=== PATIENT | female | born 1960 | race Caucasian/White ===

== ENCOUNTER 2016-12-02 12:41 | Inpatient (IN) ==
[2016-12-02] MEDS ORDERED: SOLU-MEDROL IV ONE (13:03)
[2016-12-02] MEDS ORDERED: DUONEB (A & A) INH ONE (13:03)
[2016-12-02] MEDS ORDERED: NS 3,000 ML ONE (13:09)
[2016-12-02] MEDS ORDERED: LEVOPHED 8 MG in D5 1/2 NS 250 ML IV SCH ×2 (13:30→14:00)
[2016-12-02 13:31] LABS: BE 2.3 mmoll (-3.0-3.0); BLOOD TYPE ARTERIAL; DRAW SITE R RADIAL; O2(CT) 15.2 mL/dL (15.0-23.0); PO2(98.6) 102 mmHg (60-100); SAMPLE BLOOD; SAO2 98.4 % (95.0-100.0); THB 11.2 g/dL (11.5-17.4); pH(98.6) 7.31 (7.35-7.45)
[2016-12-02 13:32] LABS: ALLEN TEST YES; MODALITY CANNULA
[2016-12-02 13:33] LABS: PCO2(98.6) 59 mmHg (35-45)
--- NOTE | 2016-12-02 13:36 | EKG Report ---
Test Performed on : 12/02/2016 1:12:42 PM Test Reason : CHEST PAIN Blood Pressure : / mmHG Vent. Rate : 125 BPM Atrial Rate : 125 BPM P-R Int : 152 ms QRS Dur : 076 ms QT Int : 294 ms P-R-T Axes : 076 079 077 degrees QTc Int : 424 ms Sinus tachycardia. with occasional premature ventricular complexes. Biatrial enlargement Abnormal ECG When compared with ECG of 13-OCT-2016 11:47, premature ventricular complexes. are now present premature atrial complexes. are no longer present ST no longer depressed in Anterolateral leads Unconfirmed Result
[2016-12-02 13:39] LABS: BASO% 0.2 % (0.0-0.8); EOS# 0.01 X1000 (0.0-0.7); HEMATOCRIT 36.8 % (37.0-47.0); HEMOGLOBIN 11.9 g/dL (12.0-16.0); IMM GRAN# 2.42 X1000 (0.0-0.04); LYMPH# 2.11 X1000 (1.2-3.4); LYMPH% 5.2 % (20.5-51.1); MANUAL DIFF NEEDED? YES; MCH 31.6 PG (27-31); MCHC 32.3 g/dL (33-37); MCV 97.6 FL (81-99); MONO# 2.64 X1000 (0.11-0.59); MONO% 6.5 % (1.7-9.3); NEUT% 82.1 % (42.2-75.2); PLT 311 X1000 (130-400); RBC 3.77 XMIL (4.2-5.4)
[2016-12-02] MEDS ORDERED: VANCOMYCIN 1 GM/NS 1 GM/250 ML IVPB IV ONE (13:54)
[2016-12-02] MEDS ORDERED: ZOSYN 3.375 GM/NS 50 ML IV ONE (13:54)
[2016-12-02 13:55] LABS: INR 1.24 (0.86-1.15); PROTIME 15.9 Seconds (12.1-15.5)
[2016-12-02 13:56] LABS: PTT PL 36.9 Seconds (22.6-43.9)
[2016-12-02] MEDS ORDERED: LEVAQUIN 750 MG/D5W 750 MG/150 ML IVPB IV ONE (13:57)
[2016-12-02 14:01] LABS: ALBUMIN 3.4 g/dL (3.5-5.0); CALCIUM 9.3 mg/dL (8.8-10.2); MAGNESIUM 1.4 mg/dL (1.5-2.7); POTASSIUM 4.8 mmol/L (3.5-5.1); TOTAL BILIRUBIN 0.5 mg/dL (0.20-1.00); TOTAL PROTEIN 7.6 g/dL (6.3-8.3)
[2016-12-02 14:20] LABS: AMYLASE 35 U/L (20-200); LIPASE 15 U/L (13-60)
[2016-12-02 14:22] LABS: BANDS 4 % (0-1); LYMPHS 4 % (21-51); MONO 4 % (1-9)
--- NOTE | 2016-12-02 15:03 | Diag Imaging Result Doc PS360 ---
HEAD W/O CONTRAST - 12/02/2016 INDICATION: AMS TECHNIQUE: A CT dose reduction protocol was used. COMPARISON: None FINDINGS: There is mild to moderate hypodensity of the internal capsules bilaterally right greater than left. No intracranial mass or hemorrhage. The skull is intact. The sinuses, mastoids, and middle ears are clear. IMPRESSION: Chronic microvascular disease of the basilar white matter of the cerebral hemispheres, most notably the internal capsules. No acute appearing abnormality. Electronically signed by Alan Machado 12/02/2016 3:00 PM
--- NOTE | 2016-12-02 15:07 | Diag Imaging Result Doc PS360 ---
ABDOMEN/PELVIS W/O CONTRAST - 12/02/2016 INDICATION: CP/SOB/hypotension TECHNIQUE: A CT dose reduction protocol was used. COMPARISON: Chest CT 06/25/2016 FINDINGS: Stable COPD in the lung bases. No radiodense renal stones. No hydronephrosis or hydroureter. Solid abdominal organs are unremarkable. No bowel obstruction or inflammation. Uterus is absent. Urinary bladder and rectum are normal. There are moderate degenerative changes of the spine. No acute or suspicious bony lesion. IMPRESSION: No acute disease. Electronically signed by Alan Machado 12/02/2016 3:04 PM
--- NOTE | 2016-12-02 15:18 | Diag Imaging Result Doc PS360 ---
EXAM: CHEST-2 VIEWS HISTORY: CP TECHNIQUE: AP and lateral chest COMPARISON: 10/13/2016 FINDINGS: There is a large area of abnormal opacity involving the right hilum, superior right lower lobe, anterior right upper lobe and right middle lobe. Findings are consistent with atelectasis or pneumonia. Endobronchial lesion is not excluded. There is pulmonary emphysema. Left lung is clear. Heart size is normal. No effusions are appreciated. IMPRESSION: New focal airspace disease involving the right hilum, superior right lower lobe and anterior right upper and middle lobes. This may represent atelectasis or consolidation. Endobronchial lesion or mass is not excluded. CT thorax could be considered. Electronically signed by Paulina Max 12/02/2016 3:16 PM
--- NOTE | 2016-12-02 15:58 | PROVIDER DOCUMENTATION ---
This chart was entered by Caity Hall Scribe, acting as scribe for Yossi Liang MD. HPI-Respiratory General - General Chief Complaint: Shortness of Breath Stated Complaint: SOB,WEAKNESS Time Seen by Provider: 12/02/16 13:01 Source: patient Allergies/Adverse Reactions: Patient Allergies Allergy/AdvReac Type Severity Reaction Status Date / Time Penicillins Allergy Severe loss of Verified 06/30/14 10:05 consciousness Home Medications: Home Medication List Medication Instructions Recorded Confirmed Last Taken Type Esomeprazole [Nexium] 40 mg PO DAILY 04/08/13 06/30/14 10/01/13 09:00 History Fenofibrate [Tricor] 145 mg PO DAILY 04/08/13 06/30/14 09/30/13 22:00 History Ferrous Sulfate 500 gm MC DAILY 04/08/13 06/30/14 10/01/13 09:00 History Prednisone 5 mg PO DAILY 04/08/13 06/30/14 10/01/13 09:00 History Primidone [Mysoline] 250 mg PO BID 04/08/13 06/30/14 10/01/13 09:00 History Roflumilast [Daliresp] 500 microgm PO DAILY 04/08/13 06/30/14 10/01/13 09:00 History Sertraline HCl [Zoloft] 100 mg PO DAILY 04/08/13 06/30/14 10/01/13 09:00 History Tizanidine [Zanaflex] 4 mg PO Q8HR 04/08/13 06/30/14 10/01/13 09:00 History Fluticasone/Salmeterol [Advair 1 each IH PRN PRN 10/01/13 06/30/14 10/01/13 09: 00 History 250-50 Diskus] Metoprolol Succinate [Toprol Xl] 50 mg PO DAILY 10/01/13 06/30/14 10/01/13 09: 00 History Tiotropium Mamou Inhaler 1 puff INH RTDAILY 10/01/13 06/30/14 10/01/13 09:00 History [Spiriva] Prednisone 40 mg PO DAILY #0 tablet 10/03/13 06/30/14 Unknown Rx - History of Present Illness-Resp Nature of Presenting Problem: Pt is 56 y/o F presents to the ED with SOB. Pt states the SOB started this am. Pt denies cough and F. Pt states pain on R flank with deep inspiration. Quality of Pain: reports: tightness Severity in ED: reports: mild Onset/Duration: reports: this morning Timing: reports: still present Cough Quality/Degree: reports: mild Episode Frequency: occasional episodes Current Respiratory Medication Therapy: Initiated see nurses note Modifying Factors: improves with: nothing Associated Symptoms: reports: shortness of breath, other (R flank pain). denies : chest pain/soreness, cough, dizziness, earache, facial pain, fever/chills, flu -like symptoms, headache, heart racing, hurts to breathe, hyperventilating, lightheadedness, muscle/bodyaches, nasal congestion, nasal drainage, sinus pain , short of breath, sore throat, sweaty, wheezing Similar Symptoms Previously?: No Recently seen or treated by another doctor?: No Review of Systems - Adult - REVIEW OF SYSTEMS - ADULT Constitutional: reports: no symptoms reported Eyes: reports: no symptoms reported Ears, Nose, Mouth & Throat: reports: no symptoms reported Cardiovascular: reports: irregular heart rate (tachy). denies: chest pain, heart murmur Respiratory: reports: cough, shortness of breath. denies: wheezing Gastrointestinal: reports: no symptoms reported Genitourinary: reports: flank pain (R). denies: dysuria, hematuria Musculoskeletal: reports: back pain. denies: bone pain, joint pain, neck pain Integumentary: reports: no symptoms reported Neurological: reports: no symptoms reported Psychiatric: reports: no symptoms reported Endocrine: reports: no symptoms reported Hematologic/Lymphatic: reports: no symptoms reported Allergic/Immunologic: reports: no symptoms reported All Other Systems: Reviewed and Negative Past History - Adult - PAST MEDICAL HISTORY-ADULT Review of Records: reports: Nursing Assessment Review, Medications Reviewed, Social history reviewed & non-contributory. Major Childhood Illnesses: reports: denies history Cardiovascular: reports: arrhythmia (tachycardia), HTN, hyperlipidemia Respiratory: reports: bronchitis, COPD Gastrointestinal: reports: GERD Obstetrical/Gynecological: reports: denies history Genitourinary: reports: denies history Musculoskeletal: reports: denies history Neurological: reports: denies history Endocrine/Immune: reports: denies history Other Conditions: reports: denies history - PRIOR SURGERIES/PROCEDURES Surgical/Procedure History: reports: hysterectomy - IMMUNIZATION STATUS Childhood Immunizations: See Nurse Assessment Flu Vaccine: See Nurse Assessment - FAMILY HISTORY Family History: reviewed, not pertinent - SOCIAL HISTORY Smoking: quit greater than 1 year, cigarettes Substance Use: denies Living Situation: family Physical Exam-General - PHYSICAL EXAM-ADULT Initial Vital Signs Reviewed: Yes - CONSTITUTIONAL General Appearance: appears well, alert, no apparent distress - EYES Eyes: PERRL/EOMI, pink conjunctivae - HEAD, EARS, NOSE, MOUTH & THROAT HENMT: normocephalic/atraumatic, normal ENT inspection. negative: moist mucous membranes (dry) - NECK Neck: non-tender, full range of motion, supple, normal inspection - RESPIRATORY Respiratory: chest non-tender, lungs clear, decreased breath sounds, pain on inspiration, increased rate - CARDIOVASCULAR Cardiovascular: normal peripheral pulses, tachycardia - GASTROINTESTINAL (ABDOMEN) Abdominal Exam: normal bowel sounds, non tender, soft - LYMPHATIC Lymphatic: no adenopathy - MUSCULOSKELETAL Back Exam: normal inspection, no CVA tenderness, no vertebral tenderness Extremity: normal range of motion, non-tender, normal gait, normal inspection - SKIN Integumentary: normal turgor, warm/dry, pallor - NEUROLOGIC Neurologic: grossly normal - PSYCHIATRIC Psych/Mental Status: normal mood/affect, oriented x 3 Progress - PLAN OF CARE/RESULTS Progress/Plan/Lab Results: Vital Signs - 8 hr 12/02/16 12:49 12/02/16 13:46 Temperature 97 F L Pulse Rate 61 112 H Respiratory Rate 22 24 Blood Pressure 199/75 78/53 O2 Sat by Pulse Oximetry 86 L 91 L Laboratory Results - last 24 hr 12/02/16 12/02/16 12/02/16 13:10 13:15 13:15 WBC RBC Hgb Hct MCV MCH MCHC RDW Std Deviation Plt Count MPV Immature Gran % (Auto) Neut % (Auto) Lymph % (Auto) [place] % (Auto) Eos % (Auto) Baso % (Auto) Immature Gran # (Auto) Neut # (Auto) Lymph # (Auto) [place] # (Auto) Eos # (Auto) Baso # (Auto) Segmented Neutrophils Band Neutrophils Lymphocytes Monocytes Metamyelocytes Pathologist Review PT INR APTT (Factor Assay) D-Dimer Specimen Type ARTERIAL Sample Site R RADIAL pH 7.31 L pCO2 59 H* pO2 102 H HCO3 26.7 H Base Excess 2.3 Oxyhemoglobin 95.6 ABG O2 Sat (Calculated) 15.2 ABG O2 Saturation 98.4 ABG Carboxyhemoglobin 1.90 ABG Methemoglobin 1.0 Yogi Test YES A-a O2 Difference 24.0 Total Hemoglobin 11.2 L Lactate 1.60 Liter Flow 2.0 Blood Gas Modality CANNULA FiO2 % 28.0 Sodium 132 L Potassium 4.8 Chloride 88 L Carbon Dioxide 27 Anion Gap 18 BUN 22 Creatinine 1.7 H Estimated GFR/1.73 m2 31 BUN/Creatinine Ratio 13 Glucose 96 Calculated Osmolality 268 Calcium 9.3 Magnesium 1.4 L Total Bilirubin 0.50 AST 17 ALT 16 Alkaline Phosphatase 103 Creatine Kinase 162 Troponin T < 0.010 Eee-[id number]-Zmldrsqlevz Pept Total Protein 7.6 Albumin 3.4 L Globulin 4.0 Albumin/Globulin Ratio 1.0 Amylase Lipase Acetaminophen Plasma/Serum Ethyl Alc 12/02/16 12/02/16 12/02/16 13:15 13:15 13:15 WBC 40.65 H RBC 3.77 L Hgb 11.9 L Hct 36.8 L MCV 97.6 MCH 31.6 H MCHC 32.3 L RDW Std Deviation 12.9 Plt Count 311 MPV 10.0 Immature Gran % (Auto) 6.0 H Neut % (Auto) 82.1 H Lymph % (Auto) 5.2 L [place] % (Auto) 6.5 Eos % (Auto) 0.0 Baso % (Auto) 0.2 Immature Gran # (Auto) 2.42 H Neut # (Auto) 33.40 H Lymph # (Auto) 2.11 [place] # (Auto) 2.64 H Eos # (Auto) 0.01 Baso # (Auto) 0.07 Segmented Neutrophils 87 H Band Neutrophils 4 H Lymphocytes 4 L Monocytes 4 Metamyelocytes 1.0 Pathologist Review PT 15.9 H INR 1.24 H APTT (Factor Assay) 36.9 D-Dimer Specimen Type Sample Site pH pCO2 pO2 HCO3 Base Excess Oxyhemoglobin ABG O2 Sat (Calculated) ABG O2 Saturation ABG Carboxyhemoglobin ABG Methemoglobin Yogi Test A-a O2 Difference Total Hemoglobin Lactate Liter Flow Blood Gas Modality FiO2 % Sodium Potassium Chloride Carbon Dioxide Anion Gap BUN Creatinine Estimated GFR/1.73 m2 BUN/Creatinine Ratio Glucose Calculated Osmolality Calcium Magnesium Total Bilirubin AST ALT Alkaline Phosphatase Creatine Kinase Troponin T Xru-C-Tmlqruzusmb Pept 687 H Total Protein Albumin Globulin Albumin/Globulin Ratio Amylase Lipase Acetaminophen Plasma/Serum Ethyl Alc 12/02/16 12/02/16 12/02/16 13:15 13:15 13:25 WBC RBC Hgb Hct MCV MCH MCHC RDW Std Deviation Plt Count MPV Immature Gran % (Auto) Neut % (Auto) Lymph % (Auto) [place] % (Auto) Eos % (Auto) Baso % (Auto) Immature Gran # (Auto) Neut # (Auto) Lymph # (Auto) [place] # (Auto) Eos # (Auto) Baso # (Auto) Segmented Neutrophils Band Neutrophils Lymphocytes Monocytes Metamyelocytes Pathologist Review PT INR APTT (Factor Assay) D-Dimer 1.63 H Specimen Type Sample Site pH pCO2 pO2 HCO3 Base Excess Oxyhemoglobin ABG O2 Sat (Calculated) ABG O2 Saturation ABG Carboxyhemoglobin ABG Methemoglobin Yogi Test A-a O2 Difference Total Hemoglobin Lactate Liter Flow Blood Gas Modality FiO2 % Sodium Potassium Chloride Carbon Dioxide Anion Gap BUN Creatinine Estimated GFR/1.73 m2 BUN/Creatinine Ratio Glucose Calculated Osmolality Calcium Magnesium Total Bilirubin AST ALT Alkaline Phosphatase Creatine Kinase Troponin T Mpo-T-Brdndoiltxu Pept Total Protein Albumin Globulin Albumin/Globulin Ratio Amylase 35 Lipase 15 Acetaminophen < 1.2 L Plasma/Serum Ethyl Alc 12/02/16 12/02/16 13:25 13:55 WBC RBC Hgb Hct MCV MCH MCHC RDW Std Deviation Plt Count MPV Immature Gran % (Auto) Neut % (Auto) Lymph % (Auto) [place] % (Auto) Eos % (Auto) Baso % (Auto) Immature Gran # (Auto) Neut # (Auto) Lymph # (Auto) [place] # (Auto) Eos # (Auto) Baso # (Auto) Segmented Neutrophils Band Neutrophils Lymphocytes Monocytes Metamyelocytes Pathologist Review PT INR APTT (Factor Assay) D-Dimer Specimen Type Sample Site pH pCO2 pO2 HCO3 Base Excess Oxyhemoglobin ABG O2 Sat (Calculated) ABG O2 Saturation ABG Carboxyhemoglobin ABG Methemoglobin Yogi Test A-a O2 Difference Total Hemoglobin Lactate Liter Flow Blood Gas Modality FiO2 % Sodium Potassium Chloride Carbon Dioxide Anion Gap BUN Creatinine Estimated GFR/1.73 m2 BUN/Creatinine Ratio Glucose Calculated Osmolality Calcium Magnesium Total Bilirubin AST ALT Alkaline Phosphatase Creatine Kinase Troponin T Aae-N-Qkvjutrskjo Pept Total Protein Albumin Globulin Albumin/Globulin Ratio Amylase Lipase Acetaminophen Plasma/Serum Ethyl Alc Orders Category Date Time Status Cardiac Monitoring DIRECTED Care 12/02/16 12:59 Active Oxygen Therapy- ED Nursing DIRECTED Care 12/02/16 12:59 Active Saline Loc NOW Care 12/02/16 12:59 Active ABDOMEN/PELVIS W/O CONTRAST [CT] Stat Exams 12/02/16 13:22 Completed CHEST-2 VIEWS [RAD] Stat Exams 12/02/16 12:59 Completed HEAD W/O CONTRAST [CT] Stat Exams 12/02/16 13:52 Completed ABG [RESP] Routine Lab 12/02/16 13:10 Completed ACETAMINOPHEN [TDM] Stat Lab 12/02/16 13:25 Completed AMYLASE [CHEM] Stat Lab 12/02/16 13:15 Completed BLOOD CULTURE [BLDCUL] Stat Lab 12/02/16 13:15 Received CBC WITH ELECTRONIC DIFF [HEME] Stat Lab 12/02/16 13:15 Completed CK PROFILE [SP CHEM] Stat Lab 12/02/16 13:15 Completed CK PROFILE [SP CHEM] Stat Lab 12/02/16 15:42 Ordered COMPREHENSIVE METABOLIC PANEL [CHEM] Stat Lab 12/02/16 13:15 Com[address] D-DIMER PL [COAG] Stat Lab 12/02/16 13:15 Completed ETOH [ALCOHOL BLOOD] Stat Lab 12/02/16 13:25 Completed LIPASE [CHEM] Stat Lab 12/02/16 13:15 Completed MAGNESIUM [CHEM] Stat Lab 12/02/16 13:15 Completed PRO B-NATRIURETIC PEPTIDE Stat Lab 12/02/16 13:15 Com[address]IME WITH INR PL [COAG] Stat Lab 12/02/16 13:[address] [COAG] Stat Lab 12/02/16 13:15 Completed TROPONIN T Stat Lab 12/02/16 13:15 Completed TROPONIN T Stat Lab 12/02/16 15:[address] W/POSS RFLX CULT [URINALYSIS] Stat Lab 12/02/16 15:46 Ordered URINE DRUG SCREEN PL Stat Lab 12/02/16 15:47 Ordered 0.9% Sodium Chloride Inj [Ns] 1,000 ml Med 12/02/16 13:09 Discontinued .ROUTE As Directed Albuterol 2.5MG/Ipratrop 0.5MG [Duoneb (A & A)] Med 12/02/16 13:03 Discontinued 3 ml INH NOW ONE Dextrose 5%-0.45% NaCl Inj [D5 1/2 Ns] 250 ml Med 12/02/16 13:30 Discontinued Norepinephrine [Levophed] 8 mg IV 2 mcg/min Dextrose 5%-0.45% NaCl Inj [D5 1/2 Ns] 250 ml Med 12/02/16 14:00 Active Norepinephrine [Levophed] 8 mg IV As Directed Levofloxacin 750 mg/D5w [Levaquin 750 mg/D5w] Med 12/02/16 13:57 Discontinued 750 mg in 150 ml IV NOW Methylprednisolone Sod Succ [Solu-Medrol] Med 12/02/16 13:03 Discontinued 125 mg IV NOW ONE Piperacil/Tazobact 3.375 gm/Ns [Zosyn 3.375 gm/Ns] 50 Med 12/02/16 13:54 Discontinued ml IV NOW Vancomycin 1 gm/Ns Med 12/02/16 13:54 Discontinued 1 gm in 250 ml IV NOW Aerosol Treatments Routine Oth 12/02/16 13:04 Active Aerosol Treatments Stat Oth 12/02/16 13:04 Active EKG [EKG] Stat Ther 12/02/16 12:59 Draft EKG [EKG] Stat Ther 12/02/16 15:42 Ordered Transfer/Admit Order [TRANSFER] Routine Transfer 12/02/16 15:51 Ordered Result Diagrams: 12/02/16 13:15 12/02/16 13:15 - REASSESSMENT Reassessment #1 Time Reassessed: 13:58 (Dr. Liang at bedside ) Status: improving Reassessment Comment: Pt states she is feeling better. Pt is responsive. Pt's BP is 78/52 - EKG 1 Time of EKG reading by physician:: 13:12 EKG Read and Signed by:: Yossi Liang EKG Interpretation (*Must complete 3 of following elements*): Abnormal Rate: 125 Rhythm: sinus tachycardia with occasional premature ventricular complexes Comments: biatrial enlargement - XRAY 1 XRAY Study: Chest Impression: Abnormal (new focal airspace disease involving the right hilum, superior right lower lobe and anterior right upper and middle lobes. this may represent atelectasis or consolidation. endobronchial lesion or mass is not excluded. CT thorax could be considered.) - CT/MRI 1 CT Study: Abdomen, Pelvis Impression: Normal CT Results: no acute disease 2 CT Study: Head Impression: Abnormal (chronic microvascular disease of the basilar white matter of the cerebral hemispheres, most notably the internal capsules. no acute appearing abnormality.) CT Results: - CONSULTS/PCP/HOSPITALIST Notification #1 *Consult/PCP/Hospitalist*: Dr. Morris Time Discussed: 15:52 Reason/Comments: Dr. Liang consulted with Dr. Morris about admit of Pt Consult Disposition: Admit Departure - Departure Date of Disposition Decision: 12/02/16 Time of Disposition Decision: 15:25 DIAGNOSIS: Renal failure, Hypotension, Pneumonia Disposition: ADMITTED INPATIENT 09 Certified Medical Emergency: Emergent Condition: Stable Referrals and Follow-Ups: Ashley Matute MD [Primary Care Provider] - - Critical Care Note This patient required my direct & personal management of CC.: Yes Total Time (mins): 50 Critical Care Statement: This patient required my direct personal management to treat or rule out processes, the absence of which, could potentiallly result in sudden, clinically significant life or limb threatening deterioration. This chart was documented by the indicated scribe, (Caity Hall Scribe) and accurately reflects the services I performed and decisions made by me, Yossi Liang MD, as attested by the provider's signature.
--- NOTE | 2016-12-02 16:12 | EKG Report ---
Test Performed on : 12/02/2016 4:09:34 PM Test Reason : REPEAT Blood Pressure : / mmHG Vent. Rate : 125 BPM Atrial Rate : 125 BPM P-R Int : 154 ms QRS Dur : 082 ms QT Int : 310 ms P-R-T Axes : 081 083 077 degrees QTc Int : 447 ms Sinus tachycardia. Otherwise normal ECG When compared with ECG of 02-DEC-2016 13:12, (Unconfirmed) premature ventricular complexes. are no longer present Unconfirmed Result
[2016-12-02 17:20] LABS: UR AMPHETAMINES QUAL NONE DETECTED (NONE DETECT); UR BARBITUATES QUAL PRESUMPTIVE POSITIVE (NONE DETECT); UR BENZODIAZEPIN QUAL NONE DETECTED (NONE DETECT); UR COCAINE QUAL NONE DETECTED (NONE DETECT); UR MDMA QUAL NONE DETECTED (NONE DETECT); UR METHADONE QUAL NONE DETECTED (NONE DETECT); UR METHAMPHETAMINE QUAL NONE DETECTED (NONE DETECT); UR OPIATES QUAL NONE DETECTED (NONE DETECT); UR OXYCODONE QUAL NONE DETECTED (NONE DETECT); UR PCP QUAL NONE DETECTED (NONE DETECT)
[2016-12-02 17:21] LABS: UR CANNABINOIDS QUAL NONE DETECTED (NONE DETECT); UR TCA QUAL PRESUMPTIVE POSITIVE (NONE DETECT)
[2016-12-02 17:25] LABS: BILIRUBIN URINE NEGATIVE (NEGATIVE); BLOOD URINE 2+ (NEGATIVE); CLARITY CLEAR (CLEAR); COLOR YELLOW; GLUCOSE URINE NEGATIVE (NEGATIVE); LEUKOCYTES URINE TRACE (NEGATIVE); NITRITE URINE NEGATIVE (NEGATIVE); PH URINE 6.5; PROTEIN URINE TRACE mg/dL (NEGATIVE); SP GRAVITY URINE 1.015; URINE CAST NONE SEEN /LPF; URINE CRYSTAL NONE SEEN /HPF; URINE CULTURE PL NEEDED? YES; URINE EPITHELIAL CELLS <10 /HPF (<10); URINE RBC <10 /HPF (<10); URINE WBC <10 /HPF (<10); UROBILINOGEN URINE NORMAL
[2016-12-02 17:26] LABS: URINE SOURCE CATH
[2016-12-02] MEDS ORDERED: SODIUM CHLORIDE 0.9% INJ SCH (17:38)
[2016-12-02] MEDS ORDERED: ZOFRAN IV PRN (17:38)
[2016-12-02] MEDS ORDERED: NS 1,000 ML IV ONE (17:38)
[2016-12-02] MEDS: NEO-SYNEPHRINE 50 MG in NS 250 ML IV SCH ×2 (18:43→22:35)
[2016-12-02] MEDS: LOVENOX SUBQ SCH (19:04)
[2016-12-02] MEDS: AZACTAM 2 GM in NS 100 ML IV SCH (19:04)
[2016-12-02] MEDS: PROTONIX IV SCH (19:05)
--- NOTE | 2016-12-02 19:23 | HISTORY AND PHYSICAL ---
CHIEF COMPLAINT: Shortness of breath. HISTORY OF PRESENT ILLNESS: This is a 56-year-old female with COPD on home oxygen who presents from home with acute onset shortness of breath. She is followed by Dr. Ross as an outpatient for COPD on home oxygen therapy. She came in for evaluation because of progressive shortness of breath that started around 1:30 and progressively got worse. She has been intermittently febrile, tachycardic and hypoxic. No temperature here. She has also dropped her blood pressure and is now on pressors. She has gotten 2 L of fluid. She does report a productive cough. Workup in the ER revealed a right upper lobe, right lower lobe, right middle lobe infiltrate and she was admitted for further treatment, critically ill. PAST MEDICAL HISTORY: 1. Chronic obstructive pulmonary disease. 2. Hypertension. 3. Dyslipidemia. 4. Denies any cardiac history or diabetic history. 5. She is on chronic steroid therapy namely prednisone. SOCIAL HISTORY: She has at least a [id number] smoking history. No current smoking. ALLERGIES: Penicillin. MEDICATIONS: A list is being compiled, but Nexium 40, Tricor 145, ferrous sulfate, Advair, prednisone 10 daily, Mysoline 250, Daliresp 500 daily, Zoloft 100 daily, Xanax and Zanaflex p.r.n., Spiriva daily. REVIEW OF SYSTEMS: Otherwise negative times 10 point review of systems. PHYSICAL EXAMINATION: VITAL SIGNS: Blood pressure 78/53 although most recent was about 100/70, heart rate 112, respiratory rate 24, 91% on 1 L, 97 temperature. GENERAL: Well-developed female in mild distress. HEAD: Normocephalic, atraumatic. EYE EXAMINATION: Pupils equal, round, reactive to light. Extraocular movements were intact. EAR/NOSE/THROAT EXAMINATION: Moist mucous membranes. NECK EXAMINATION: Supple. CARDIOVASCULAR: Regular rate and rhythm. No murmurs, gallops, or rubs. PULMONARY EXAMINATION: Bilateral breath sounds, clear to auscultation with rales and rhonchi at the right base. GASTROINTESTINAL: Soft, nontender, nondistended. Bowel sounds are positive. EXTREMITIES: No clubbing or cyanosis. LYMPHATICS: No peripheral edema. NEUROLOGICAL EXAMINATION: Nonfocal. LABORATORY DATA: White count of 40,000, hemoglobin and hematocrit 11 and 36, platelets of 311,000, INR normal, D-dimer elevated. pH 7.31, pCO2 59, PaO2 102. Sodium 132, creatinine 1.7, magnesium 1.4. ProBNP 687. She was having some abdominal complaints so they did an abdominopelvic CT which was really unremarkable. Head CT was unremarkable. Chest x-ray showed right lower lobe superior segment disease, right upper lobe between the fissure, and some right middle lobe infiltrate. ASSESSMENT: A 56-year-old female with chronic obstructive pulmonary disease presenting with acute respiratory failure, multilobar pneumonia, septic shock. 1. Acute respiratory failure: We will continue O2 breathing treatments. I am going to initiate BiPAP because she does have some hypercapnic respiratory failure and increased work of breathing. She appears flushed, diaphoretic and pursed lip breathing. 2. Multilobar pneumonia: We will treat with vancomycin, Levaquin and Azactam broad-spectrum antibiotics because she is critically ill associated with shock and pneumonia. Obtain sputum culture. Blood cultures have been obtained. Continue pulmonary toilet. 3. Hypertension: Obviously at this point she is hypotensive which leads to the next problem. 4. Septic shock: We will continue hydration, antibiotics, volume resuscitation and pressors as required. 5. Disposition pending her current issues. We will continue to follow. TIME SPENT: 35 minute critical care time for BiPAP, respiratory failure, IV vasopressors and septic shock. We will transition to Sridhar-Synephrine in relation to her relative tachycardia as long as it supports her blood pressure. cc: MD Ashley Venegas MD Mamoun I. Najjar, MD
[2016-12-02] MEDS: DUONEB (A & A) INH SCH ×2 (19:45→23:50)
[2016-12-02] MEDS: SOLU-MEDROL IV SCH (22:59)
[2016-12-03] MEDS: AZACTAM 2 GM in NS 100 ML IV SCH ×3 (01:57→18:16)
[2016-12-03] MEDS: SOLU-MEDROL IV SCH ×4 (01:58→19:52)
[2016-12-03] MEDS: NEO-SYNEPHRINE 50 MG in NS 250 ML IV SCH ×4 (02:00→15:14)
[2016-12-03] MEDS ORDERED: NS 1,000 ML IV SCH (02:24)
[2016-12-03] MEDS: DUONEB (A & A) INH SCH ×6 (04:09→23:53)
[2016-12-03 05:52] LABS: HEMATOCRIT 39.7 % (37.0-47.0); HEMOGLOBIN 12.4 g/dL (12.0-16.0); MCH 31.4 PG (27-31); MCHC 31.2 g/dL (33-37); MCV 100.5 FL (81-99); MPV 9.4 FL (7.4-10.4); RBC 3.95 XMIL (4.2-5.4)
[2016-12-03 05:56] LABS: BE -6.9 mmoll (-3.0-3.0); BLOOD TYPE ARTERIAL; DRAW SITE R RADIAL; METHB 1.1 % (0.0-1.5); O2(CT) 15.2 mL/dL (15.0-23.0); PO2(98.6) 80 mmHg (60-100); SAMPLE BLOOD; SAO2 97.3 % (95.0-100.0); THB 11.3 g/dL (11.5-17.4)
[2016-12-03 05:59] LABS: pH(98.6) 7.14 (7.35-7.45)
[2016-12-03 06:00] LABS: ALLEN TEST YES; MODALITY CANNULA; PCO2(98.6) 67 mmHg (35-45)
[2016-12-03] MEDS ORDERED: SODIUM BICARBONATE 8.4% IV PUSH ONE (06:31)
[2016-12-03] MEDS ORDERED: NS 500 ML IV ONE (06:31)
[2016-12-03 06:32] LABS: AGAP 17; BUN 18 mg/dL (8-22); CALCIUM 7.9 mg/dL (8.8-10.2); CHLORIDE 104 mmol/L (98-107); COSMO 287; POTASSIUM 4.2 mmol/L (3.5-5.1); SODIUM 140 mmol/L (136-145); TCO2 20 mmol/L (25-35)
--- NOTE | 2016-12-03 07:43 | Diag Imaging Result Doc PS360 ---
EXAM: CHEST-PORTABLE - 12/03/2016 HISTORY: dyspnea TECHNIQUE: Portable chest 6:04 AM COMPARISON: 12/02/2016 FINDINGS: Heart size is normal. There is opacity which extends from the right hilum to the lateral margin of the right mid chest similar to the previous exam. There is a combination of consolidation, atelectasis, pleural fluid or thickening along the minor and major fissure. This is suspicious for pneumonia, although other underlying lesion is not excluded. The remainder lungs appear clear of acute changes. There is no pneumothorax seen. IMPRESSION: Stable right mid chest opacity. This is suspicious for pneumonia, although other underlying lesion is not excluded. Electronically signed by Layo Manzanares 12/03/2016 7:40 AM
[2016-12-03] MEDS ORDERED: NS 1,000 ML IV ONE (07:59)
[2016-12-03] MEDS: NS 1,000 ML IV SCH ×3 (09:55→19:52)
[2016-12-03 10:14] LABS: BE -3.1 mmoll (-3.0-3.0); BLOOD TYPE ARTERIAL; DRAW SITE R RADIAL; METHB 1.4 % (0.0-1.5); O2(CT) 15.2 mL/dL (15.0-23.0); PO2(98.6) 113 mmHg (60-100); SAMPLE BLOOD; SAO2 98.9 % (95.0-100.0); THB 11.1 g/dL (11.5-17.4); pH(98.6) 7.23 (7.35-7.45)
[2016-12-03 10:28] LABS: ALLEN TEST YES; MODALITY BI PAP; PCO2(98.6) 60 mmHg (35-45)
[2016-12-03] MEDS ORDERED: LEVOPHED 8 MG in D5 1/2 NS 250 ML IV PRN (14:47)
[2016-12-03] MEDS: LEVAQUIN 750 MG/D5W 750 MG/150 ML IVPB IV SCH (14:54)
[2016-12-03] MEDS: LOVENOX SUBQ SCH (17:43)
[2016-12-03] MEDS: PROTONIX IV SCH (17:43)
[2016-12-03] MEDS ORDERED: BLISTEX MEDICATED BERRY LIP BALM TOP PRN (21:05)
[2016-12-03] MEDS: TYLENOL PO PRN (22:00)
--- NOTE | 2016-12-03 23:30 | PROGRESS NOTE ---
DATE: 12/03/2016 SUBJECTIVE: Patient is currently on BiPAP. She is arousable, does seem to be alert and responsive to questions. OBJECTIVE: Vital Signs: Temperature 98, pulse 44, respiratory rate 14, BP 110/53, sat 98% on BiPAP currently. General: Patient is awake, alert. She is currently in no respiratory distress. She is pleasant to talk with, is easily awakened. HEENT: Normocephalic, atraumatic. Neck: Supple. Cardiovascular: Regular rate. Chest: Relatively clear although much decreased breath sounds bilaterally. Abdomen: Soft. Extremities: Moves all extremities. ASSESSMENT: 1. Supraventricular tachycardia secondary to her acute respiratory failure. 2. Acute respiratory failure. She is currently on BiPAP and her O2 saturations are increasing. We will attempt to wean off. Her pH was 7.1. It continues to climb, currently she is at 7.23 with a pCO2 that has decreased down from 67 down to 60. 3. Leukocytosis. She has had a great improvement in her white count from 40 down to 26. 4. Hyponatremia, improved. 5. Acute renal failure, improved. Creatinine 1.7, currently down to 0.6. 6. Hypocalcemia. We will continue to follow and replace. 7. Multilobar pneumonia. Continue vancomycin, Levaquin and Azactam. Blood cultures and sputum cultures are pending. 8. Hypertension. The patient's blood pressure is still a problem as she is on Sridhar-Synephrine although she has been able to wean down on this overnight. Blood pressures are actually improving, currently in the 100 systolic range despite having decreased her Sridhar-Synephrine. 9. Septic shock. Continue antibiotics. PLAN: We will continue antibiotics. Hopefully wean her BiPAP and wean her oxygen. She certainly may end up requiring Cardizem although I expect her tachycardia is secondary to her acute respiratory failure. Hopefully she will continue to improve. TIME SPENT: 40 minutes was spent in total care. cc: Ra Ma MD
[2016-12-04] MEDS: SOLU-MEDROL IV SCH ×4 (01:58→19:34)
[2016-12-04] MEDS: AZACTAM 2 GM in NS 100 ML IV SCH ×3 (01:58→17:22)
[2016-12-04] MEDS: DUONEB (A & A) INH SCH ×6 (03:44→23:25)
[2016-12-04 04:50] LABS: BE 1.6 mmoll (-3.0-3.0); BLOOD TYPE ARTERIAL; DRAW SITE R RADIAL; METHB 1.3 % (0.0-1.5); O2(CT) 14.8 mL/dL (15.0-23.0); PO2(98.6) 144 mmHg (60-100); SAMPLE BLOOD; SAO2 98.8 % (95.0-100.0); THB 10.7 g/dL (11.5-17.4)
[2016-12-04 04:54] LABS: ALLEN TEST YES; MODALITY CANNULA; PCO2(98.6) 80 mmHg (35-45)
[2016-12-04] MEDS: NS 1,000 ML IV SCH ×3 (05:02→20:58)
--- NOTE | 2016-12-04 11:03 | PROGRESS NOTE ---
DATE: 12/04/2016 SUBJECTIVE: Patient notes that she is feeling a little bit better. She did stay off BiPAP most of the day yesterday, but noted that she was feeling tired this morning and actually asked to go back on BiPAP. Denies any chest pain or palpitations. OBJECTIVE: Vital Signs: Temperature 97 degrees, pulse 110, respiratory rate 12, blood pressure 109/68, saturation 99% currently on BiPAP on 2L. Neck: Supple. Cardiovascular: Tachycardia. No murmurs. Chest: Decreased breath sounds bilaterally, but equal. No apparent wheezing. No crackles. Extremities: Moves all extremities. Neurologic: No changes. ASSESSMENT: 1. Acute respiratory failure, improving. 2. Multilobar pneumonia. We will continue antibiotics. 3. Hypertension. 4. Supraventricular tachycardia secondary to her respiratory failure. 5. Septic shock, improving. Blood pressures are much more stable. We will continue to wean off pressor agents. PLAN: Thirty-eight minutes was spent in total care. We will continue to wean off Sridhar-Synephrine, continue antibiotics, continue to try to wean down and wean off BiPAP. Further orders as needed. cc: Ra Ma MD
--- NOTE | 2016-12-04 11:27 | Diag Imaging Result Doc PS360 ---
EXAM: CHEST-PORTABLE HISTORY: dyspnea TECHNIQUE: Single view of the chest was performed portably. COMPARISON: 12/03/2016 FINDINGS: Large focal opacity extending from the right hilum to lateral chest wall essentially unchanged. Heart size is stable. Left lung is clear. There may be a trace right effusion. There is no pneumothorax. IMPRESSION: Unchanged indeterminate right lung opacity. CT thorax could be considered. Electronically signed by Paulina Max 12/04/2016 11:24 AM
[2016-12-04] MEDS: LEVAQUIN 750 MG/D5W 750 MG/150 ML IVPB IV SCH (14:10)
[2016-12-04] MEDS ORDERED: ATIVAN IV PRN (16:11)
--- NOTE | 2016-12-04 16:32 | EKG Report ---
Test Performed on : 12/04/2016 4:00:49 PM Test Reason : INCREASED HR AND SOB Blood Pressure : / mmHG Vent. Rate : 156 BPM Atrial Rate : 156 BPM P-R Int : 136 ms QRS Dur : 078 ms QT Int : 320 ms P-R-T Axes : 076 092 060 degrees QTc Int : 515 ms Sinus tachycardia. with premature atrial complexes. Rightward axis Low voltage QRS Cannot rule out Anterior infarct , age undetermined Abnormal ECG When compared with ECG of 02-DEC-2016 16:09, (Unconfirmed) premature atrial complexes. are now present Minimal criteria for Anterior infarct are now present Confirmed by Aba Kurtz MD ([id number]) on 12/14/2016 6:28:31 PM
[2016-12-04 16:37] LABS: BE 3.4 mmoll (-3.0-3.0); BLOOD TYPE ARTERIAL; DRAW SITE R RADIAL; METHB 0.5 % (0.0-1.5); O2(CT) 15.7 mL/dL (15.0-23.0); PO2(98.6) 69 mmHg (60-100); SAMPLE BLOOD; SAO2 95.4 % (95.0-100.0); THB 11.9 g/dL (11.5-17.4); pH(98.6) 7.23 (7.35-7.45)
[2016-12-04 16:42] LABS: ALLEN TEST YES; MODALITY BI PAP
[2016-12-04] MEDS: ATIVAN IV PRN ×2 (17:01→20:58)
[2016-12-04 17:02] LABS: PCO2(98.6) 79 mmHg (35-45)
[2016-12-04] MEDS ORDERED: CARDIZEM IV ONE (17:11)
[2016-12-04] MEDS: LOVENOX SUBQ SCH (17:22)
[2016-12-04] MEDS: PROTONIX IV SCH (17:22)
[2016-12-04] MEDS ORDERED: CARDIZEM CD PO SCH (19:45)
[2016-12-04] MEDS: TYLENOL PO PRN (20:58)
--- NOTE | 2016-12-05 00:21 | EKG Report ---
Test Performed on : 12/04/2016 11:29:46 PM Test Reason : SINUS TACHYCARDIA Blood Pressure : / mmHG Vent. Rate : 144 BPM Atrial Rate : 144 BPM P-R Int : 144 ms QRS Dur : 064 ms QT Int : 338 ms P-R-T Axes : 077 069 076 degrees QTc Int : 523 ms Sinus tachycardia. with premature atrial complexes. Low voltage QRS Septal infarct (cited on or before 04-DEC-2016) Abnormal ECG When compared with ECG of 04-DEC-2016 16:00, (Unconfirmed) Questionable change in initial forces of Anterior leads Confirmed by Aba Kurtz MD ([id number]) on 12/14/2016 6:28:20 PM
[2016-12-05] MEDS: AZACTAM 2 GM in NS 100 ML IV SCH ×3 (02:00→17:32)
[2016-12-05] MEDS: SOLU-MEDROL IV SCH ×3 (02:21→17:32)
[2016-12-05] MEDS: ATIVAN IV PRN ×2 (03:12→23:47)
[2016-12-05] MEDS: DUONEB (A & A) INH SCH ×5 (04:10→19:52)
--- NOTE | 2016-12-05 05:27 | EKG Report ---
Test Performed on : 12/05/2016 05:21:59 AM Test Reason : verify rhythm Blood Pressure : / mmHG Vent. Rate : 146 BPM Atrial Rate : 146 BPM P-R Int : 144 ms QRS Dur : 066 ms QT Int : 252 ms P-R-T Axes : 074 -01 063 degrees QTc Int : 392 ms Sinus tachycardia. with premature supraventricular complexes. Low voltage QRS Septal infarct (cited on or before 04-DEC-2016) Abnormal ECG When compared with ECG of 04-DEC-2016 23:29, (Unconfirmed) Questionable change in QRS axis Confirmed by Aba Kurtz MD ([id number]) on 12/14/2016 6:28:09 PM
[2016-12-05] MEDS: LOPRESSOR IV PRN ×2 (06:30→12:14)
[2016-12-05 06:38] LABS: HEMATOCRIT 38.1 % (37.0-47.0); HEMOGLOBIN 11.6 g/dL (12.0-16.0); MCH 31.4 PG (27-31); MCHC 30.4 g/dL (33-37); MCV 103.3 FL (81-99); MPV 10.3 FL (7.4-10.4); RBC 3.69 XMIL (4.2-5.4)
[2016-12-05 07:08] LABS: AGAP 12; ALBUMIN 2.7 g/dL (3.5-5.0); ALKALINE PHOSPHATASE 111 U/L (32-104); BUN 22 mg/dL (8-22); CALCIUM 9.6 mg/dL (8.8-10.2); CHLORIDE 104 mmol/L (98-107); COSMO 295; GOT 18 U/L (10-30); GPT 13 U/L (10-36); MAGNESIUM 1.8 mg/dL (1.5-2.7); POTASSIUM 4.3 mmol/L (3.5-5.1); SODIUM 145 mmol/L (136-145); TCO2 29 mmol/L (25-35); TOTAL BILIRUBIN < 0.15 mg/dL (0.20-1.00); TOTAL PROTEIN 6.6 g/dL (6.3-8.3)
[2016-12-05] MEDS: CARDIZEM 100 MG/NS 100 MG/100 ML IVPB IV SCH ×4 (09:20→23:02)
[2016-12-05] MEDS: LASIX IV SCH ×2 (09:20→20:13)
[2016-12-05 10:35] LABS: BE 6.6 mmoll (-3.0-3.0); BLOOD TYPE ARTERIAL; DRAW SITE L RADIAL; METHB 0.9 % (0.0-1.5); O2(CT) 14.7 mL/dL (15.0-23.0); PCO2(98.6) 76 mmHg (35-45); PO2(98.6) 49 mmHg (60-100); SAMPLE BLOOD; SAO2 89.7 % (95.0-100.0); SRATE 16 BPM; pH(98.6) 7.28 (7.35-7.45)
[2016-12-05 10:55] LABS: ALLEN TEST YES; MODALITY BI PAP
--- NOTE | 2016-12-05 11:28 | PROGRESS NOTE ---
DATE: 12/05/2016 SUBJECTIVE: Patient is actually a little more sedated this morning. She did get a little anxious and got some Ativan earlier which certainly could be the cause. PHYSICAL EXAMINATION: Temperature 97 degrees, pulse 140s, respiratory 25, BP 147/63. Sat 93% on 32% FiO2 currently on BiPAP.General: Patient is sedated. She does not awaken this morning as well as she did yesterday. She is not alert enough to take medications currently. She is in more respiratory distress than she was yesterday. HEENT: Normocephalic. Neck: Supple. Cardiovascular: Tachycardia. No appreciable murmurs. Chest: Decreased breath sounds bilaterally but equal and very little change from yesterday's exam. Abdomen: Soft. Extremities: She now has 1+ edema in all 4 extremities. ASSESSMENT: 1. Acute on chronic respiratory failure. We will repeat an ABG this morning. Place her back on BiPAP. 2. Acute renal failure. Serum creatinine actually is improved from 1.7 down to 0.4. 3. Moderate severe protein calorie malnutrition. 4. Leukocytosis. This has continued to improve from 40 on admit currently down to 18. PLAN: We will stop IV fluids. We will give her IV Lasix x3 doses. She currently is positive for close to 4 L from admit but she was obviously volume depleted on admit. Uncertain of what her baseline. Her weight is up 11 pounds from admission. We will also start Cardizem drip. Her blood pressure is actually stable, much improved. On admit she was severely hypotensive and required Sridhar-Synephrine. Currently her blood pressures are 140s without Sridhar-Synephrine. As noted, we will try Cardizem drip to see if this will help slow down her heart rate as she is not able to take her normal home dose of p.o. Cardizem. cc: Ra Ma MD
--- NOTE | 2016-12-05 13:14 | Diag Imaging Result Doc PS360 ---
CHEST-PORTABLE - 12/05/2016 INDICATION: dyspnea TECHNIQUE: COMPARISON: 12/04/2016 FINDINGS: Stable substantial focal infiltrate at the right hilum. The left lung remains clear. Heart size and pulmonary vascularity is normal. IMPRESSION: Stable right hilar infiltrate. Electronically signed by Alan Machado 12/05/2016 1:11 PM
[2016-12-05] MEDS: LEVAQUIN 750 MG/D5W 750 MG/150 ML IVPB IV SCH (13:34)
[2016-12-05 16:31] LABS: BE 11.5 mmoll (-3.0-3.0); BLOOD TYPE ARTERIAL; DRAW SITE R RADIAL; METHB 1.2 % (0.0-1.5); O2(CT) 16.2 mL/dL (15.0-23.0); PO2(98.6) 162 mmHg (60-100); SAMPLE BLOOD; SAO2 98.6 % (95.0-100.0); THB 11.7 g/dL (11.5-17.4); pH(98.6) 7.43 (7.35-7.45)
[2016-12-05 17:28] LABS: MODALITY BI PAP; PCO2(98.6) 57 mmHg (35-45)
[2016-12-05 17:29] LABS: ALLEN TEST YES
[2016-12-05] MEDS: PROTONIX IV SCH (17:33)
[2016-12-05] MEDS: LOVENOX SUBQ SCH (17:33)
[2016-12-06] MEDS: DUONEB (A & A) INH SCH ×7 (00:03→23:45)
[2016-12-06] MEDS: AZACTAM 2 GM in NS 100 ML IV SCH ×3 (01:39→18:08)
[2016-12-06] MEDS: SOLU-MEDROL IV SCH ×3 (01:40→18:08)
[2016-12-06] MEDS: CARDIZEM 100 MG/NS 100 MG/100 ML IVPB IV SCH ×3 (06:23→18:56)
[2016-12-06] MEDS: LASIX IV SCH (08:12)
[2016-12-06] MEDS ORDERED: CARDIZEM CD PO SCH (09:46)
[2016-12-06] MEDS ORDERED: TOPROL XL PO ONE (10:38)
[2016-12-06] MEDS ORDERED: CARDIZEM CD PO ONE (11:15)
--- NOTE | 2016-12-06 11:21 | PROGRESS NOTE ---
DATE: 12/06/2016 SUBJECTIVE: Patient is much improved this morning. She is awake, alert. PHYSICAL EXAMINATION: Vital Signs: Temperature 97, pulse 103, respiratory rate 18, BP 116/63, saturation 94% on 3 L. She is currently off her BiPAP. HEENT: Normocephalic and atraumatic. Neck: Supple. CV: Regular rate. Chest: Much improved, although still decreased. She has better air movement. No wheezing. No crackles. Does have positive rhonchi. Extremities: Moves all extremities. Neurologic: No changes. Skin: Warm and dry. No rashes. ASSESSMENT: 1. Sepsis with septic shock secondary to pneumonia, improved. 2. Multilobar pneumonia. Continues to improve. She is still on Azactam and Levaquin. 3. Chronic obstructive pulmonary disease with severe exacerbation. Continue to decrease her Solu- Medrol. 4. Supraventricular tachycardia. This is something that she has had issues with in the past. She currently is on a Cardizem drip. We will restart her oral Cardizem and see if we can totally wean off her drip. This is secondary to her pneumonia, her steroids, and her chronic obstructive pulmonary disease, in addition to the fact that she has known supraventricular tachycardia. 5. Hypotension, resolved. Patient's blood pressure is slowly increasing. 6. Acute hypoxic and hypercapnic respiratory failure, improving. Her last ABG was much improved. cc: Ra Ma MD
[2016-12-06] MEDS: CARDIZEM CD PO SCH (11:40)
[2016-12-06] MEDS: LEVAQUIN 750 MG/D5W 750 MG/150 ML IVPB IV SCH (14:04)
[2016-12-06] MEDS: PROTONIX IV SCH (18:08)
[2016-12-06] MEDS: LOVENOX SUBQ SCH (18:08)
[2016-12-06] MEDS: ATIVAN IV PRN (22:12)
[2016-12-07] MEDS: AZACTAM 2 GM in NS 100 ML IV SCH ×3 (01:25→18:30)
[2016-12-07] MEDS: SOLU-MEDROL IV SCH ×3 (01:26→18:29)
[2016-12-07] MEDS: DUONEB (A & A) INH SCH ×6 (03:11→23:17)
[2016-12-07 05:37] LABS: HEMATOCRIT 36.5 % (37.0-47.0); HEMOGLOBIN 11.1 g/dL (12.0-16.0); MCH 30.7 PG (27-31); MCHC 30.4 g/dL (33-37); MCV 100.8 FL (81-99); MPV 9.5 FL (7.4-10.4); RBC 3.62 XMIL (4.2-5.4)
[2016-12-07 06:01] LABS: ALBUMIN 2.6 g/dL (3.5-5.0); ALKALINE PHOSPHATASE 68 U/L (32-104); BUN 19 mg/dL (8-22); CALCIUM 8.9 mg/dL (8.8-10.2); COSMO 292; GOT 19 U/L (10-30); GPT 14 U/L (10-36); MAGNESIUM 1.5 mg/dL (1.5-2.7); SODIUM 142 mmol/L (136-145); TOTAL PROTEIN 5.6 g/dL (6.3-8.3)
[2016-12-07 06:27] LABS: AGAP 1; CHLORIDE 94 mmol/L (98-107); POTASSIUM 2.8 mmol/L (3.5-5.1)
[2016-12-07 06:30] LABS: TCO2 47 mmol/L (25-35)
[2016-12-07 06:32] LABS: BE 32.6 mmoll (-3.0-3.0); BLOOD TYPE ARTERIAL; DRAW SITE R RADIAL; METHB 1.4 % (0.0-1.5); O2(CT) 15.3 mL/dL (15.0-23.0); PO2(98.6) 64 mmHg (60-100); SAMPLE BLOOD; SAO2 95.5 % (95.0-100.0); THB 11.7 g/dL (11.5-17.4); pH(98.6) 7.45 (7.35-7.45)
[2016-12-07 06:36] LABS: ALLEN TEST YES; MODALITY CANNULA; PCO2(98.6) 90 mmHg (35-45)
[2016-12-07] MEDS ORDERED: KLOR-CON PO ONE (06:55)
[2016-12-07] MEDS ORDERED: POTASSIUM CHLORIDE 40 MEQ/SWI 40 MEQ/100 ML IVPB IV ONE (07:22)
[2016-12-07] MEDS: POTASSIUM CHLORIDE 20 MEQ/SWI 20 MEQ/100 ML IVPB IV SCH ×2 (08:27→11:29)
[2016-12-07] MEDS: CARDIZEM CD PO SCH (08:32)
--- NOTE | 2016-12-07 08:42 | Diag Imaging Result Doc PS360 ---
EXAM: CHEST-PORTABLE HISTORY: dyspnea TECHNIQUE: Portable AP COMPARISON: 12/05/2016 FINDINGS: The lungs are well expanded. Infiltrates remain in the mid right lung. These are less dense than on the prior study. The left lung remains clear. Heart is not enlarged. The vessels are not distended. No pleural effusions identified. IMPRESSION: Mild interval improvement. Electronically signed by Landen Storm 12/07/2016 8:39 AM
--- NOTE | 2016-12-07 08:50 | PROGRESS NOTE ---
DATE: 12/07/2016 SUBJECTIVE: Patient was doing better yesterday afternoon. She was off BiPAP for several hours. Did require going back on BiPAP overnight. This morning, she was noted to have a low blood potassium and this will be replaced. PHYSICAL EXAMINATION: Vital Signs: Temperature 97.9 degrees, pulse 92, respiratory rate 18, BP 128/77. Currently on BiPAP. However, she was saturating 93% on a nasal cannula yesterday afternoon. Unfortunately, overnight she became more lethargic. ABG was obtained which demonstrated an elevated pCO2 again at 90 and she was restarted on the BiPAP. ASSESSMENT: 1. Leukocytosis, resolved. White count is now down to 10 from 40 on admission. 2. Sepsis. Continues to improve. 3. Acute hypercapnic respiratory failure. Patient is starting to tolerate off BiPAP for longer intervals. 4. Hypokalemia. We will replace. 5. Hyperglycemia. Continue to follow. 6. Supraventricular tachycardia, better with increasing Cardizem to 360. PLAN: We will not change her antibiotics currently today. We will continue Cardizem 360. We will increase this as needed. Her blood pressures are much better. Her sepsis from her current pneumonia is improving. We will recheck her x-ray today. Continue to attempt to wean off BiPAP. Further orders as needed. cc: Ra Ma MD
[2016-12-07 11:53] LABS: BLOOD TYPE ARTERIAL; METHB 1.4 % (0.0-1.5); PO2(98.6) 82 mmHg (60-100); SAMPLE BLOOD; SAO2 97.6 % (95.0-100.0); THB 11.9 g/dL (11.5-17.4)
[2016-12-07 11:57] LABS: PCO2(98.6) 60 mmHg (35-45); pH(98.6) 7.58 (7.35-7.45)
[2016-12-07 11:58] LABS: ALLEN TEST YES; DRAW SITE L RADIAL; MODALITY BI PAP
[2016-12-07 11:59] LABS: SRATE 16 BPM
[2016-12-07] MEDS: LEVAQUIN 750 MG/D5W 750 MG/150 ML IVPB IV SCH (14:45)
[2016-12-07] MEDS: LOVENOX SUBQ SCH (18:30)
[2016-12-07] MEDS: PROTONIX IV SCH (18:30)
[2016-12-07] MEDS: SPIRIVA INH SCH (19:10)
[2016-12-07] MEDS: ADVAIR 500/50 DISKUS INH SCH (19:12)
[2016-12-07] MEDS: MYSOLINE PO SCH (20:14)
[2016-12-08] MEDS: SOLU-MEDROL IV SCH ×3 (02:00→17:59)
[2016-12-08] MEDS: AZACTAM 2 GM in NS 100 ML IV SCH ×3 (02:00→17:59)
[2016-12-08] MEDS: DUONEB (A & A) INH SCH ×6 (03:19→23:27)
[2016-12-08 06:14] LABS: HEMATOCRIT 39.3 % (37.0-47.0); HEMOGLOBIN 12.1 g/dL (12.0-16.0); MCH 30.6 PG (27-31); MCHC 30.8 g/dL (33-37); MCV 99.2 FL (81-99); RBC 3.96 XMIL (4.2-5.4)
[2016-12-08] MEDS: PRILOSEC PO SCH (06:25)
[2016-12-08 06:28] LABS: AGAP 4; ALBUMIN 3.1 g/dL (3.5-5.0); ALKALINE PHOSPHATASE 72 U/L (32-104); BUN 15 mg/dL (8-22); CHLORIDE 92 mmol/L (98-107); COSMO 282; GOT 16 U/L (10-30); GPT 16 U/L (10-36); MAGNESIUM 1.5 mg/dL (1.5-2.7); POTASSIUM 3.3 mmol/L (3.5-5.1); SODIUM 137 mmol/L (136-145); TCO2 42 mmol/L (25-35); TOTAL PROTEIN 6.1 g/dL (6.3-8.3)
[2016-12-08] MEDS: ADVAIR 500/50 DISKUS INH SCH ×2 (07:30→19:16)
[2016-12-08] MEDS: SPIRIVA INH SCH (07:31)
[2016-12-08] MEDS ORDERED: KLOR-CON PO ONE (08:10)
[2016-12-08] MEDS ORDERED: METOPROLOL SUCCINATE 100 MG PO SCH (09:00)
[2016-12-08] MEDS: CARDIZEM CD PO SCH (09:01)
[2016-12-08] MEDS: MYSOLINE PO SCH ×2 (09:01→20:16)
[2016-12-08] MEDS: TOPROL XL PO SCH (09:01)
[2016-12-08] MEDS: DALIRESP PO SCH (09:01)
[2016-12-08] MEDS: ZOLOFT PO SCH (09:01)
--- NOTE | 2016-12-08 09:34 | PROGRESS NOTE ---
DATE: 12/08/2016 SUBJECTIVE: The patient notes that she is feeling much better this morning. She is actually sitting up attempting to eat breakfast. OBJECTIVE: Vital Signs: Reviewed. Temperature 97 degrees, pulse 110, respiratory 16, BP 149/83, saturation 97% on 3 L. General: Patient is awake, alert. She is in much less respiratory distress. She is smiling this morning. Notes that she is feeling much better. She is able to attempt to eat breakfast which is a huge improvement from the last few days where she has been on BiPAP each day. Her saturations are improved on nasal cannula and off BiPAP. HEENT: Normocephalic, atraumatic. Neck: Supple. Cardiovascular: Tachycardia. No murmurs. Chest: Decreased breath sounds on the right but still tremendously improved from yesterday's exam. Abdomen: Soft. Extremities: Moves all extremities. Neurologic: No changes. ASSESSMENT: 1. Right middle lobe pneumonia, improving. 2. Respiratory failure, hypercapnic, improving. She is off BiPAP. 3. Hypertension, improving. 4. Septic shock, improved. 5. Supraventricular tachycardia, chronic in nature. She has restarted her home medications. 6. Leukocytosis. Continues to improve. Her white count was 40 on admit and currently down to 8. 7. Hypokalemia. Continues to improve. She is currently at 3.3. Will replace p.o. 8. Mild protein calorie malnutrition. Should continue to improve as she is now able to start eating. TIME SPENT: 40 minutes spent in total care. cc: Ra Ma MD
[2016-12-08] MEDS: LEVAQUIN 750 MG/D5W 750 MG/150 ML IVPB IV SCH (14:47)
[2016-12-08] MEDS: LOVENOX SUBQ SCH (17:59)
[2016-12-08] MEDS: PROTONIX IV SCH (17:59)
[2016-12-08] MEDS: PAMELOR PO SCH (20:16)
[2016-12-09] MEDS: AZACTAM 2 GM in NS 100 ML IV SCH ×3 (02:40→17:36)
[2016-12-09] MEDS: SOLU-MEDROL IV SCH ×3 (02:40→17:35)
[2016-12-09] MEDS: DUONEB (A & A) INH SCH ×6 (03:28→22:48)
[2016-12-09] MEDS: PRILOSEC PO SCH (06:22)
[2016-12-09] MEDS: SPIRIVA INH SCH (07:56)
[2016-12-09] MEDS: ADVAIR 500/50 DISKUS INH SCH ×2 (07:56→19:36)
--- NOTE | 2016-12-09 09:25 | Diag Imaging Result Doc PS360 ---
EXAM: CHEST-2 VIEWS HISTORY: hypoxia TECHNIQUE: PA and Lateral chest x-ray COMPARISON: 12/07/2016 and earlier. FINDINGS: The cardiomediastinal silhouette is within normal limits. The pulmonary vasculature is not congested. There is continued improvement of the right midlung opacity. There is new small right apical opacity. Left lung remains clear. There is a trace right effusion. Possible trace left effusion. There is pulmonary emphysema. IMPRESSION: Continued improvement in right midlung opacity. Electronically signed by Paulina Max 12/09/2016 9:22 AM
[2016-12-09] MEDS: MYSOLINE PO SCH ×2 (09:38→21:09)
[2016-12-09] MEDS: ZOLOFT PO SCH (09:38)
[2016-12-09] MEDS: CARDIZEM CD PO SCH (09:38)
[2016-12-09] MEDS: DALIRESP PO SCH (09:40)
[2016-12-09] MEDS: TOPROL XL PO SCH (09:40)
[2016-12-09] MEDS ORDERED: KLOR-CON PO ONE (12:28)
--- NOTE | 2016-12-09 12:51 | PROGRESS NOTE ---
DATE: 12/09/2016 SUBJECTIVE: The patient states she feels better today. She is off BiPAP. OBJECTIVE: Vital Signs: Blood pressure is 131/65 with heart rate of 96, respirations are 18, temperature is 98.4 degrees with oxygen saturations 97-99% on 2 L nasal cannula. Cardiovascular: Regular rate and rhythm. S1, S2 appreciated. Pulmonary: Breath sounds are decreased on the right, but have improved over the last 24 hours. No increased work of breathing noted. Gastrointestinal: Abdomen is soft, nontender, nondistended with bowel sounds in all 4 quadrants. Extremities: No clubbing, cyanosis, or edema. Calves are nontender. Pulses are palpable x4. LABORATORY: Sodium is 137, potassium 3.3, BUN 15, creatinine 0.3 with a glucose of 232. WBC is 8.71, with a hemoglobin of 12.1, hematocrit 39.3, and platelets of 276,000. IMAGING: Chest x-ray reveals continued improvement in the right lung opacity. ASSESSMENT AND PLAN: 1. Right middle lobe pneumonia, improving. 2. Respiratory failure, hypercapnic, improving. 3. Hypertension, improving. 4. Septic shock, improved. 5. Supraventricular tachycardia. Chronic in nature. We have restarted her home medications. 6. Leukocytosis. White count is down to 8 from 40. 7. Hypokalemia. We will continue to trend labs and replete as appropriate. 8. Mild protein calorie malnutrition. The patient is eating now. This should improve. 9. Deep venous thrombosis prophylaxis. We will continue Lovenox and gastrointestinal prophylaxis, Protonix. Dictated by JOCELINE Hogue for Ra Ma MD cc: JOCELINE Hogue MD
[2016-12-09] MEDS: LEVAQUIN 750 MG/D5W 750 MG/150 ML IVPB IV SCH (14:08)
[2016-12-09] MEDS: PROTONIX IV SCH (17:35)
[2016-12-09] MEDS: LOVENOX SUBQ SCH (17:36)
[2016-12-09] MEDS: PAMELOR PO SCH (21:09)
[2016-12-10] MEDS: SOLU-MEDROL IV SCH ×3 (01:07→20:54)
[2016-12-10] MEDS: AZACTAM 2 GM in NS 100 ML IV SCH ×3 (01:07→18:23)
[2016-12-10] MEDS: DUONEB (A & A) INH SCH ×6 (02:58→23:15)
[2016-12-10] MEDS: PRILOSEC PO SCH (06:23)
[2016-12-10 06:28] LABS: HEMATOCRIT 40.8 % (37.0-47.0); HEMOGLOBIN 12.7 g/dL (12.0-16.0); MCH 30.4 PG (27-31); MCHC 31.1 g/dL (33-37); MCV 97.6 FL (81-99); MPV 10.3 FL (7.4-10.4); RBC 4.18 XMIL (4.2-5.4)
[2016-12-10] MEDS ORDERED: LEVAQUIN 750 MG/D5W 750 MG/150 ML IVPB IV SCH (06:29)
[2016-12-10 06:49] LABS: AGAP 5; BUN 18 mg/dL (8-22); CALCIUM 9.1 mg/dL (8.8-10.2); CHLORIDE 96 mmol/L (98-107); COSMO 289; POTASSIUM 4.3 mmol/L (3.5-5.1); SODIUM 139 mmol/L (136-145); TCO2 38 mmol/L (25-35)
[2016-12-10] MEDS: PROTONIX PO SCH (07:50)
[2016-12-10] MEDS: ADVAIR 500/50 DISKUS INH SCH ×2 (08:10→19:36)
[2016-12-10] MEDS: SPIRIVA INH SCH (08:11)
--- NOTE | 2016-12-10 08:25 | PROGRESS NOTE ---
DATE: 12/10/2016 SUBJECTIVE: The patient notes she is feeling tremendously better this morning. She is awake, lying in the bed. Denies any shortness of breath. PHYSICAL: Vital Signs: Temperature 97.9, pulse 94, respiratory 20, BP 127/73, saturation 100% on 2 L. General: Patient is awake, alert. She is currently in no respiratory distress. Pleasant. Neck: Supple. CV: Regular rate. Chest: Much improved. Still decreased, but equal bilaterally. No apparent wheezing. No apparent crackles noted. Abdomen: Soft. Extremities: Moves all extremities. Neurologic: No changes. Skin: Warm and dry. No rashes. LABS: WBCs 14. Carbon dioxide down to 38. ASSESSMENT: 1. Multilobar pneumonia improving. She currently is on aztreonam and Levaquin. Her white count actually has come up slightly, uncertain what to make of this. Clinically, she is much improved. White count has increased from 8 to 14. 2. Leukocytosis as noted. White count is elevated to 14. We have been decreasing her steroids. Certainly the steroid effect could be the cause of her elevated white count. She clinically is improved we will not adjust her antibiotics. In fact, we will change to p.o. Levaquin and we will follow. We will continue to decrease her Solu-Medrol again, today to 40 q.12. 3. Acute respiratory failure. Patient has not required BiPAP in 2 days. 4. Hypoxemic respiratory failure. She continued to wean down on oxygen. 5. Septic shock secondary to pneumonia, resolved. 6. Hypertension. 7. Dyslipidemia. cc: Ra Ma MD
[2016-12-10] MEDS: ZOLOFT PO SCH (09:33)
[2016-12-10] MEDS: DALIRESP PO SCH (09:33)
[2016-12-10] MEDS: TOPROL XL PO SCH (09:33)
[2016-12-10] MEDS: MYSOLINE PO SCH ×2 (09:34→20:54)
[2016-12-10] MEDS: CARDIZEM CD PO SCH (09:34)
[2016-12-10] MEDS ORDERED: LEVAQUIN PO SCH (14:00)
[2016-12-10] MEDS: LOVENOX SUBQ SCH (18:23)
[2016-12-10] MEDS: PAMELOR PO SCH (20:54)
[2016-12-11] MEDS: AZACTAM 2 GM in NS 100 ML IV SCH (02:20)
[2016-12-11] MEDS: DUONEB (A & A) INH SCH ×6 (03:24→22:56)
[2016-12-11] MEDS: PRILOSEC PO SCH (06:18)
[2016-12-11] MEDS: PROTONIX PO SCH (06:18)
[2016-12-11] MEDS: SPIRIVA INH SCH (07:55)
[2016-12-11] MEDS: ADVAIR 500/50 DISKUS INH SCH ×2 (07:56→19:37)
[2016-12-11] MEDS: MYSOLINE PO SCH ×2 (09:10→20:10)
[2016-12-11] MEDS: DALIRESP PO SCH (09:10)
[2016-12-11] MEDS: TOPROL XL PO SCH (09:11)
[2016-12-11] MEDS: SOLU-MEDROL IV SCH (09:11)
[2016-12-11] MEDS: CARDIZEM CD PO SCH (09:11)
[2016-12-11] MEDS: ZOLOFT PO SCH (09:11)
[2016-12-11] MEDS: OMNICEF PO SCH ×2 (10:31→20:09)
--- NOTE | 2016-12-11 12:18 | PROGRESS NOTE ---
DATE: 12/11/2016 SUBJECTIVE: The patient notes that she is feeling better. She is having less cough, congestion, less shortness of breath. She is starting to move a little bit but still gets very short of breath trying to ambulate to the room. OBJECTIVE: Vital Signs: Temperature 98, pulse 95, respiratory rate 18, BP 114/63, sat 98% on 2 L. General: Patient is awake, alert. She is in mild respiratory distress. Pleasant to talk with. Lungs: Positive cough. No rales. No wheezing currently. Positive rhonchi Abdomen: Soft. Extremities: Moves all extremities. Neurologic: No focal changes. Skin: Warm and dry. No rashes. DIAGNOSTIC DATA: WBCs 14, otherwise normal. ASSESSMENT: 1. Multilobar pneumonia. Continues to improve. Most recent chest x-ray showed some improvement. Clinically, she is better. We will repeat chest x-ray today. We will continue to wean Solu- Medrol. We will change patient's antibiotics to Levaquin p.o. and Omnicef p.o. Her allergy to penicillin was the fact that the she had a shot when she was 9 years old and immediately passed out. This certainly seems much more likely to be vasovagal and then some type of true allergic reaction. However, I do feel as though it is best to watch her overnight on Omnicef. 2. Hypertension, stable. 3. Hypoxemia. We will attempt to wean her oxygen. 4. Hopefully home in 1-2 days. cc: Ra Ma MD
[2016-12-11] MEDS: LOVENOX SUBQ SCH (17:50)
[2016-12-11] MEDS: PAMELOR PO SCH (20:10)
[2016-12-12] MEDS: DUONEB (A & A) INH SCH ×6 (02:52→22:44)
[2016-12-12] MEDS: PROTONIX PO SCH (06:12)
[2016-12-12 06:21] LABS: HEMOGLOBIN 12.1 g/dL (12.0-16.0); MCH 30.4 PG (27-31); MPV 10.6 FL (7.4-10.4); RBC 3.98 XMIL (4.2-5.4)
[2016-12-12 06:40] LABS: AGAP 7; ALKALINE PHOSPHATASE 67 U/L (32-104); BUN 17 mg/dL (8-22); CALCIUM 9.2 mg/dL (8.8-10.2); CHLORIDE 96 mmol/L (98-107); COSMO 285; GOT 13 U/L (10-30); GPT 11 U/L (10-36); MAGNESIUM 1.7 mg/dL (1.5-2.7); POTASSIUM 3.8 mmol/L (3.5-5.1); SODIUM 138 mmol/L (136-145); TCO2 36 mmol/L (25-35); TOTAL PROTEIN 5.4 g/dL (6.3-8.3)
[2016-12-12] MEDS: SPIRIVA INH SCH (07:08)
[2016-12-12] MEDS: ADVAIR 500/50 DISKUS INH SCH ×2 (07:08→19:11)
--- NOTE | 2016-12-12 08:19 | Diag Imaging Result Doc PS360 ---
EXAM: CHEST-2 VIEWS HISTORY: hypoxia TECHNIQUE: PA and lateral chest COMMENT: There is COPD. There is platelike opacity present in the right upper lobe and right middle lobe. This has not changed appreciably since 12/09/2016. This is worse than on 06/30/2014 and 10/13/2016. IMPRESSION: COPD. Atelectasis plus minus fibrosis on the right as described stable since 12/09/2016. Electronically signed by Mono Baker 12/12/2016 8:17 AM
[2016-12-12] MEDS ORDERED: SOLU-MEDROL IV SCH (09:00)
[2016-12-12] MEDS: ZOLOFT PO SCH (09:43)
[2016-12-12] MEDS: TOPROL XL PO SCH (09:43)
[2016-12-12] MEDS: OMNICEF PO SCH ×2 (09:43→20:16)
[2016-12-12] MEDS: LEVAQUIN PO SCH (09:43)
[2016-12-12] MEDS: DALIRESP PO SCH (09:44)
[2016-12-12] MEDS: CARDIZEM CD PO SCH (09:44)
[2016-12-12] MEDS: MYSOLINE PO SCH ×2 (09:45→20:16)
--- NOTE | 2016-12-12 11:59 | PROGRESS NOTE ---
DATE: 12/12/2016 SUBJECTIVE: The patient is still weak, tired and fatigued. Notes that she is having great difficulty getting out of bed. She has to have assistance to sit up because she gets too weak. Denies any cough, congestion. Denies any chest pain, palpitations. Denies any fevers or chills. States overall she is actually feeling better from a breathing standpoint. OBJECTIVE: Vital Signs: Temperature 97, pulse 98, respiratory rate 18, BP 102/54, satting 98% on 2 L. General: Patient is awake, alert. She is currently in no respiratory distress. She is pleasant to talk with. Neck: Supple. CV: Regular rate. Chest: Relatively clear. Good air movement. No wheezing. Abdomen: Soft. Extremities: Moves all extremities. Neurologic: No focal changes. DIAGNOSTIC DATA: WBCs 19, hemoglobin and hematocrit is normal. CMP is normal. Glucose 247, albumin 3.0. ASSESSMENT: 1. Mild protein calorie malnutrition, improving. 2. Leukocytosis of undetermined significance. Her white count actually dropped from 40 down to 8, and it has slowly climbed back over the last 2 days to 19. Somehow her Levaquin was dropped off yesterday; doubt this would have made such a significant difference in 24 hours, although she is also on steroids and this could be a steroid effect. We will continue to follow. Further orders as needed. We will stop her steroids today and go to prednisone. 3. Wheezing, resolved. 4. Multilobar pneumonia, improving. 5. Acute respiratory failure, resolved. 6. Hypertension, stable. Continue metoprolol. cc: Ra Ma MD
[2016-12-12] MEDS: LOVENOX SUBQ SCH (17:24)
[2016-12-12] MEDS: PAMELOR PO SCH (20:16)
[2016-12-12] MEDS: ATIVAN IV PRN (23:02)
[2016-12-13] MEDS: DUONEB (A & A) INH SCH ×6 (02:42→23:26)
[2016-12-13] MEDS: PROTONIX PO SCH (06:16)
[2016-12-13 06:32] LABS: HEMATOCRIT 36.8 % (37.0-47.0); HEMOGLOBIN 11.7 g/dL (12.0-16.0); MCH 30.5 PG (27-31); MCHC 31.8 g/dL (33-37); MCV 96.1 FL (81-99); MPV 10.7 FL (7.4-10.4); RBC 3.83 XMIL (4.2-5.4)
[2016-12-13 06:35] LABS: AGAP 8; ALBUMIN 2.7 g/dL (3.5-5.0); ALKALINE PHOSPHATASE 58 U/L (32-104); BUN 11 mg/dL (8-22); CALCIUM 8.9 mg/dL (8.8-10.2); CHLORIDE 92 mmol/L (98-107); COSMO 270; GOT 14 U/L (10-30); GPT 11 U/L (10-36); MAGNESIUM 1.6 mg/dL (1.5-2.7); POTASSIUM 3.7 mmol/L (3.5-5.1); SODIUM 133 mmol/L (136-145); TCO2 33 mmol/L (25-35); TOTAL PROTEIN 5.3 g/dL (6.3-8.3)
[2016-12-13] MEDS: ADVAIR 500/50 DISKUS INH SCH ×2 (07:33→20:35)
[2016-12-13] MEDS: SPIRIVA INH SCH (07:33)
[2016-12-13] MEDS: LEVAQUIN PO SCH (09:11)
[2016-12-13] MEDS: PREDNISONE PO SCH (09:11)
[2016-12-13] MEDS: OMNICEF PO SCH ×2 (09:11→20:16)
[2016-12-13] MEDS: CARDIZEM CD PO SCH (09:11)
[2016-12-13] MEDS: ZOLOFT PO SCH (09:11)
[2016-12-13] MEDS: DALIRESP PO SCH (09:12)
[2016-12-13] MEDS: TOPROL XL PO SCH (09:12)
[2016-12-13] MEDS: MYSOLINE PO SCH ×2 (09:20→20:16)
--- NOTE | 2016-12-13 10:31 | PROGRESS NOTE ---
DATE: 12/13/2016 SUBJECTIVE: The patient continues to be weak and fatigued. She continues to require assistance to get out of bed or in the chair or out of the chair as she is too weak. She denies any chest pain, palpitations, fever, chills, cough. OBJECTIVE: Vital Signs: Blood pressure is 96/61, with a heart rate of 111, respirations are 18, temperature is 98 degrees oral, with oxygen saturations of 96-98% on 1 L nasal cannula. Cardiovascular: Regular rate and rhythm. S1 and S2 are appreciated. Pulmonary: She has rhonchi scattered throughout with no increased work of breathing noted. Gastrointestinal: Abdomen is soft, nontender, nondistended, with bowel sounds in all 4 quadrants. Extremities: No clubbing, cyanosis, or edema. Calves are nontender. Pulses are palpable x4. Neurologic: She is alert and oriented x3. Diagnostic Data: WBC is 15.68, with hemoglobin 11.7, hematocrit 36.8, and platelets of 236,000. Sodium is 133, potassium 3.7, BUN 11, creatinine 0.4, with a glucose of 171. ASSESSMENT: 1. Mild protein calorie malnutrition, improving. 2. Leukocytosis of undetermined significance. Her white count continues to decline, being 15.68 today. She remains afebrile. Of note, she continues on steroids. We will continue to follow. Continue prednisone. 3. Wheezing. This has resolved. 4. Multilobar pneumonia. This is improving. We will continue with the regimen. 5. Acute respiratory failure, resolved. 6. Hypertension. We will continue with her current regimen. 7. Disposition. We are awaiting [facility] evaluation. Dictated by JOCELINE Hogue for Ra Ma MD cc: JOCELINE Hogue MD
[2016-12-13] MEDS: LOVENOX SUBQ SCH (17:32)
[2016-12-13] MEDS: PRAVACHOL PO SCH (20:16)
[2016-12-13] MEDS: PAMELOR PO SCH (20:16)
[2016-12-13] MEDS: ATIVAN IV PRN (23:52)
[2016-12-14] MEDS: DUONEB (A & A) INH SCH ×6 (03:36→23:13)
[2016-12-14] MEDS: PROTONIX PO SCH (06:15)
[2016-12-14] MEDS: SPIRIVA INH SCH (07:48)
[2016-12-14] MEDS: ADVAIR 500/50 DISKUS INH SCH ×2 (07:48→19:16)
--- NOTE | 2016-12-14 09:26 | PROGRESS NOTE ---
DATE: 12/14/2016 SUBJECTIVE: Patient resting quietly in bed. No complaints voiced. OBJECTIVE: Vital Signs: Temperature 97.7 degrees, pulse 103, respirations 18, blood pressure 111/60, saturating 99% on 1 L via nasal cannula. General: This is a 56-year- old, female who is lying in the bed. No complaints voiced. HEENT: Normocephalic and atraumatic. Pupils are equal, round, and reactive to light. The extraocular movements are intact. The oropharynx and nares are clear. Neck: Supple. Lungs: Clear to auscultation bilaterally with equal lung expansion and chest wall movement. Heart: With regular rate and rhythm. No murmurs, rubs, or gallops. Abdomen: Soft, nontender, nondistended. Bowel sounds are present x4 quadrants. Extremities: No clubbing, cyanosis, or edema. Neurological: The cranial nerves 2-12 appear grossly intact. Laboratory Data: No new labs for today. ASSESSMENT: 1. Mild protein calorie malnutrition. We continued to encourage her diet. She is on Ensure Clear with each meal and we will follow. 2. Multilobar pneumonia. Continues to improve. We will continue her O2 per protocol, antibiotics, breathing treatments, and her daily prednisone of 40 mg, and follow. 3. Hypertension. Continue with her current medication regimen. 4. Leukocytosis. Her white cells continue to decline but we have no new labs for today but it is of note that she remains on daily prednisone so we will continue to follow. 5. Acute COPD exacerbation. Improved. Continue prednisone, nebs, O2 per protocol and antibiotics. DISPOSITION: We are awaiting [facility] evaluation for rehab placement. Dictated by JOCELINE Alexis for Ra Ma MD cc: JOCELINE Alexis MD [facility]
[2016-12-14] MEDS: PREDNISONE PO SCH (09:41)
[2016-12-14] MEDS: OMNICEF PO SCH ×2 (09:42→21:59)
[2016-12-14] MEDS: CARDIZEM CD PO SCH (09:42)
[2016-12-14] MEDS: TOPROL XL PO SCH (09:42)
[2016-12-14] MEDS: LEVAQUIN PO SCH (09:42)
[2016-12-14] MEDS: DALIRESP PO SCH (09:42)
[2016-12-14] MEDS: ZOLOFT PO SCH (09:42)
[2016-12-14] MEDS: MYSOLINE PO SCH ×2 (10:49→22:04)
[2016-12-14] MEDS: LOVENOX SUBQ SCH (17:03)
[2016-12-14] MEDS: PRAVACHOL PO SCH (21:59)
[2016-12-14] MEDS: ATIVAN IV PRN (21:59)
[2016-12-14] MEDS: PAMELOR PO SCH (22:04)
[2016-12-15] MEDS: DUONEB (A & A) INH SCH ×6 (03:42→23:42)
[2016-12-15] MEDS: PROTONIX PO SCH (06:23)
[2016-12-15] MEDS: SPIRIVA INH SCH (08:15)
[2016-12-15] MEDS: ADVAIR 500/50 DISKUS INH SCH ×2 (08:15→19:23)
[2016-12-15] MEDS: DALIRESP PO SCH (09:10)
[2016-12-15] MEDS: TOPROL XL PO SCH (09:10)
[2016-12-15] MEDS: PREDNISONE PO SCH (09:10)
[2016-12-15] MEDS: ZOLOFT PO SCH (09:10)
[2016-12-15] MEDS: OMNICEF PO SCH (09:10)
[2016-12-15] MEDS: MYSOLINE PO SCH ×2 (09:10→21:19)
[2016-12-15] MEDS: LEVAQUIN PO SCH (09:10)
[2016-12-15] MEDS: CARDIZEM CD PO SCH (09:11)
[2016-12-15] MEDS: LOVENOX SUBQ SCH (17:10)
[2016-12-15] MEDS: PRAVACHOL PO SCH (21:19)
[2016-12-15] MEDS: PAMELOR PO SCH (21:19)
[2016-12-16] MEDS: DUONEB (A & A) INH SCH ×3 (03:24→11:03)
[2016-12-16 06:05] LABS: MANUAL DIFF NEEDED? NO
[2016-12-16] MEDS: PROTONIX PO SCH (06:18)
[2016-12-16 06:20] LABS: BASO% 0.1 % (0.0-0.8); EOS# 0.08 X1000 (0.0-0.7); EOS% 0.5 % (0.0-10.0); HEMATOCRIT 35.6 % (37.0-47.0); HEMOGLOBIN 11.5 g/dL (12.0-16.0); IMM GRAN# 0.06 X1000 (0.0-0.04); IMM GRAN% 0.4 % (0.0-0.5); LYMPH# 1.46 X1000 (1.2-3.4); LYMPH% 9.2 % (20.5-51.1); MCH 30.5 PG (27-31); MCHC 32.3 g/dL (33-37); MCV 94.4 FL (81-99); MONO# 1.53 X1000 (0.11-0.59); MONO% 9.7 % (1.7-9.3); MPV 10.8 FL (7.4-10.4); NEUT% 80.1 % (42.2-75.2); PLT 346 X1000 (130-400); RBC 3.77 XMIL (4.2-5.4)
[2016-12-16 06:29] LABS: AGAP 6; BUN 9 mg/dL (8-22); CALCIUM 9.4 mg/dL (8.8-10.2); CHLORIDE 95 mmol/L (98-107); COSMO 275; POTASSIUM 4.4 mmol/L (3.5-5.1); SODIUM 136 mmol/L (136-145); TCO2 35 mmol/L (25-35)
[2016-12-16] MEDS: ADVAIR 500/50 DISKUS INH SCH (07:25)
[2016-12-16] MEDS: SPIRIVA INH SCH (07:26)
--- NOTE | 2016-12-16 08:54 | PROGRESS NOTE ---
DATE: 12/15/2016 SUBJECTIVE: Today Ms. Caldwell refers to be doing a little better. We are still just waiting on approval for her rehab. OBJECTIVE: Vital signs: Blood pressure is 120/63, pulse of 99, respiration is 18, temperature 98.4 degrees. General: Ms. Caldwell is a 56-year-old female. She is in bed, does not seems to be in any remarkable distress. HEENT: Mucosa is pink and moist. Anicteric. Acyanotic. Neck: Supple. Patient is saturating 95% on 2 L of oxygen. Chest: Good air entry, bilaterally reduced, more so on the left posterior lung moya. There are no crepitations but there is prolonged expiratory phase of respiration. Cardiovascular: Regular rate and rhythm. Abdomen: Soft. Extremities: No pedal edema. GAMING ASSOCIATE: Patient is awake, alert, and oriented x4. No focal neurological deficit. DIAGNOSTIC STUDIES: A chest x-ray which was done on December 12 shows COPD, atelectasis fibrosis. The consolidation has significantly improved. LABORATORY DATA: There is no lab work for today. ASSESSMENT: 1. Chronic obstructive pulmonary disease exacerbation. 2. Right middle lobe pneumonia improving. 3. Hypertension stable. 4. Mild protein calorie malnutrition. 5. Generalized deconditioning. REVIEW OF CURRENT MEDICATIONS: 2. Levofloxacin for antibiotic coverage. 3. Prednisone inhalers. 4. Pulmonary bronchodilation therapy. 5. Daliresp. We are going to continue the current management and I am hoping to hear something from [facility] about her rehab approval. cc: Haider Horne MD MTDD
[2016-12-16] MEDS: DALIRESP PO SCH (09:37)
[2016-12-16] MEDS: CARDIZEM CD PO SCH (09:37)
[2016-12-16] MEDS: ZOLOFT PO SCH (09:37)
[2016-12-16] MEDS: LEVAQUIN PO SCH (09:37)
[2016-12-16] MEDS: PREDNISONE PO SCH (09:37)
[2016-12-16] MEDS: MYSOLINE PO SCH (09:38)
--- NOTE | 2016-12-16 11:27 | DISCHARGE SUMMARY ---
ADMISSION DATE: 12/02/2016 DISCHARGE DATE: 12/16/2016 PRIMARY CARE PHYSICIAN: Dr. Matute. ADMISSION DIAGNOSES: 1. Acute respiratory failure. 2. Multilobar pneumonia. 3. Hypertension. 4. Septic shock. DISCHARGE DIAGNOSES: 1. Chronic obstructive pulmonary disease exacerbation. 2. Right middle lobe pneumonia. 3. Hypertension. 4. Mild protein calorie malnutrition. 5. Generalized weakness and deconditioning. SUMMARY OF FINDINGS: This is a 56-year-old, female who has a history of COPD on home O2, who presented from home with an acute onset of shortness of breath. She is followed by Dr. Ross, her automatic punch press operator as an outpatient. She came into the emergency room because of progressive shortness of breath and stated that it had progressively worsened. Had intermittently been febrile, tachycardic, and hypoxic. She had a drop in her blood pressure. Had gotten 2 L of normal saline on arrival. Then was placed on pressors. Admitted to the intensive care unit. Was found to have acute respiratory failure. Placed on BiPAP initially. Was found to have multilobar pneumonia and was in septic shock. She was transitioned to Sridhar-Synephrine for her blood pressure in relation to her relative tachycardia. She had an abdomen and pelvic CT on that showed no acute disease. 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 She has had multiple chest x-rays throughout this hospitalization. On 12/09/2016, she was transferred from ICU to the medical floor in stable condition. It was felt that she would benefit from rehab. She was assessed by [facility] and found to meet their criteria. We have been awaiting insurance approval and we obtained that today. She is stable currently, saturating 99% on 2 L via nasal cannula. Her white blood cell count is noted to be 15.84 today and it is felt that she is stable for discharge. DISCHARGE MEDICATIONS: Include DuoNebs 1 inhalation q.4 hours, Cardizem CD 360 mg p.o. daily, pantoprazole 40 mg p.o. daily at 7 a.m., prednisone 40 mg p.o. daily, levofloxacin 750 mg p.o. daily for 5 days (that may need to be extended based off of her findings in rehab), Zoloft 100 mg p.o. daily, primidone 250 mg p.o. b.i.d., Daliresp 500 mcg p.o. daily, Spiriva 1 puff inhalation daily, Zoloft 100 mg p.o. daily, pravastatin 40 mg p.o. at bedtime, Advair 500/ 50 one puff b.i.d., ProAir 1 puff every 4-6 hours p.r.n., nortriptyline 50 mg p.o. at bedtime. FOLLOWUP: She will need to follow up with her primary care physician once her rehab stay is completed and that will be set up at that time. All discharge instructions have been reviewed with the patient and she verbalizes understanding. A 35 minute discharge. Dictated by JOCELINE Alexis for Haider Horne MD cc: JOCELINE Alexis MD Hiteshri S. Bhavsar, MD [facility] HOSPITALRogelio
[2016-12-16 11:56] VITALS: BP 102/74
--- NOTE | 2017-03-23 18:28 | ED EKG INTERP ---
This chart was entered by Caity Hall Scribe, acting as scribe for Yossi Liang MD. EKG Interpretation - EKG Time of EKG reading by physician:: 16:09 EKG Read and Signed by:: Yossi Liang EKG Interpretation (*Must complete 3 of following elements*): Abnormal Rate: 125 Rhythm: sinus tachycardia Comments: otherwise normal ECG Attestation - Physician/ LILLIE Attestation Patient care was provided by Advanced Practice Provider:: No The physician spent face to face time with patient:: Yes Advanced Practice Provider documentation review:: Supervising physician onsite and consulted in the evaluation and care of this patient. The physician did have a face to face encounter with the patient. This chart was documented by the indicated scribe, (Caity Hall Scribe) and accurately reflects the services I performed and decisions made by me, Yossi Liang MD, as attested by the provider's signature.
== END 2016-12-16 12:50 ==
LOC: P.ED 12:41 → SUATTDRO 16:12 → P.ICU 16:12 → P.MEDSURG 12-09 10:33
PROVIDERS: ATTEND Internal Medicine

== ENCOUNTER 2017-01-05 09:25 | Inpatient (IN) ==
[2017-01-05] MEDS ORDERED: ASPIRIN PO STA (09:45)
[2017-01-05 09:55] LABS: MANUAL DIFF NEEDED? NO
[2017-01-05 10:03] LABS: BASO% 0.1 % (0.0-0.8); EOS# 0.03 X1000 (0.0-0.7); EOS% 0.4 % (0.0-10.0); HEMATOCRIT 42.3 % (37.0-47.0); HEMOGLOBIN 12.8 g/dL (12.0-16.0); IMM GRAN# 0.02 X1000 (0.0-0.04); IMM GRAN% 0.3 % (0.0-0.5); LYMPH# 0.92 X1000 (1.2-3.4); LYMPH% 11.9 % (20.5-51.1); MCH 30.2 PG (27-31); MCHC 30.3 g/dL (33-37); MCV 99.8 FL (81-99); MONO% 14.3 % (1.7-9.3); MPV 8.9 FL (7.4-10.4); PLT 352 X1000 (130-400); RBC 4.24 XMIL (4.2-5.4)
[2017-01-05 10:29] LABS: INR 0.94 (0.86-1.15); PROTIME 12.9 Seconds (12.1-15.5)
[2017-01-05 10:30] LABS: AGAP 6; ALBUMIN 3.5 g/dL (3.5-5.0); ALKALINE PHOSPHATASE 94 U/L (32-104); BUN 12 mg/dL (8-22); CALCIUM 10.6 mg/dL (8.8-10.2); CHLORIDE 90 mmol/L (98-107); CK PROFILE 14 U/L (24-173); COSMO 283; GOT 8 U/L (10-30); GPT 21 U/L (10-36); MAGNESIUM 1.8 mg/dL (1.5-2.7); POTASSIUM 3.6 mmol/L (3.5-5.1); PTT PL 33.9 Seconds (22.6-43.9); SODIUM 140 mmol/L (136-145); TCO2 44 mmol/L (25-35); TOTAL BILIRUBIN < 0.15 mg/dL (0.20-1.00); TOTAL PROTEIN 7.1 g/dL (6.3-8.3)
--- NOTE | 2017-01-05 10:31 | Diag Imaging Result Doc PS360 ---
EXAM: CHEST-PORTABLE INDICATION: sob TECHNIQUE: One view COMPARISON: 12/12/2016 FINDINGS: COPD changes are again noted. There is increasing opacity in the right midlung zone as compared to the previous study suggesting developing infiltrate. Note that this is in the same place as the previous infiltrate in late November 2016 that had improved with the most recent previous study. No other consolidations are appreciated. The cardiomediastinal silhouette and central vasculature are grossly unremarkable. IMPRESSION: Increasing opacity in the right midlung zone suggesting worsening consolidation. Please see above discussion. Follow-up chest radiograph is recommended. Electronically signed by Dung Johnson 01/05/2017 10:29 AM
[2017-01-05] MEDS ORDERED: DUONEB (A & A) INH ONE ×2 (10:46→10:48)
[2017-01-05 10:51] LABS: BE 20.4 mmoll (-3.0-3.0); BLOOD TYPE ARTERIAL; METHB 0.7 % (0.0-1.5); O2(CT) 16.7 mL/dL (15.0-23.0); PO2(98.6) 67 mmHg (60-100); SAMPLE BLOOD; SAO2 94.9 % (95.0-100.0); THB 12.9 g/dL (11.5-17.4); pH(98.6) 7.34 (7.35-7.45)
--- NOTE | 2017-01-05 10:52 | EKG Report ---
Test Performed on : 01/05/2017 09:54:04 AM Test Reason : SOB Blood Pressure : / mmHG Vent. Rate : 121 BPM Atrial Rate : 121 BPM P-R Int : 136 ms QRS Dur : 082 ms QT Int : 312 ms P-R-T Axes : 080 072 063 degrees QTc Int : 443 ms Sinus tachycardia. Right atrial enlargement Nonspecific ST abnormality Abnormal ECG When compared with ECG of 05-DEC-2016 05:21, premature supraventricular complexes. are no longer present Criteria for Septal infarct are no longer present Unconfirmed Result
[2017-01-05] MEDS ORDERED: ZITHROMAX 500 MG/NS 500 MG/250 ML IVPB IV ONE (10:54)
[2017-01-05] MEDS ORDERED: LEVAQUIN 500 MG/D5W 500 MG/100 ML IVPB IV ONE (10:54)
--- NOTE | 2017-01-05 10:57 | PROVIDER DOCUMENTATION ---
This chart was entered by Chencho Kunz Scribe, acting as scribe for Brian Rios MD. HPI-Respiratory General - General Chief Complaint: Shortness of Breath Stated Complaint: SHORTNESS OF BREATH AND WEAKNESS Time Seen by Provider: 01/05/17 09:50 Source: patient Allergies/Adverse Reactions: Patient Allergies Allergy/AdvReac Type Severity Reaction Status Date / Time Penicillins Allergy Severe loss of Verified 01/05/17 09:31 consciousness Home Medications: Home Medication List Medication Instructions Recorded Confirmed Last Taken Type Primidone [Mysoline] 250 mg PO BID 04/08/13 01/05/17 10/01/13 09:00 History Roflumilast [Daliresp] 500 microgm PO DAILY 04/08/13 01/05/17 10/01/13 09:00 History Sertraline HCl [Zoloft] 100 mg PO DAILY 04/08/13 01/05/17 10/01/13 09:00 History Tiotropium [place] Inhaler 1 puff INH RTDAILY 10/01/13 01/05/17 10/01/13 09:00 History [Spiriva] Sertraline HCl 100 mg DAILY 12/04/16 01/05/17 Unknown History Albuterol Sulfate [Proair Hfa] 1 puff Q4-6H PRN PRN 12/07/16 01/05/17 Unknown History Fluticasone/Salmeterol [Advair 1 puff BID 12/07/16 01/05/17 Unknown History 500-50 Diskus] PRAVAstatin [Pravachol] 40 mg PO HS 12/07/16 01/05/17 Unknown History Albuterol 2.5MG/Ipratrop 0.5MG 3 ml INH RTQ4H #30 neb 12/16/16 01/05/17 Unknown Rx [Duoneb (A & A)] Diltiazem C.d. [Cardizem Cd] 360 mg PO DAILY #30 capsule 12/16/16 01/05/17 Unknown Rx Levofloxacin [Levaquin] 750 mg PO DAILY #5 tablet 12/16/16 01/05/17 Unknown Rx Nortriptyline HCl 50 mg PO HS #0 12/16/16 01/05/17 Unknown Rx Pantoprazole [Protonix] 40 mg PO DAILY@0700 tablet 12/16/16 01/05/17 Unknown Rx Prednisone 40 mg PO DAILY tablet 12/16/16 01/05/17 Unknown Rx - History of Present Illness-Resp Nature of Presenting Problem: PT presents to ED with c/o SOB that started last night. Pt states she has a hx of COPD and was dx with pneumonia about 4 weeks ago. Her oxygenation saturation was 86% on 2 lpnc Quality of Pain: reports: none Severity in ED: reports: mild, moderate Onset/Duration: reports: 24 hours ago Timing: reports: still present, constant Context: reports: other (PT states she has recently had pneumonia) Exposure: reports: unknown cause Cough Quality/Degree: reports: mild Episode Frequency: chronic episodes Current Respiratory Medication Therapy: Initiated see nurses note Modifying Factors: improves with: nothing Associated Symptoms: reports: cough, shortness of breath, short of breath. denies: chest pain/soreness, fever/chills, hurts to breathe, nasal congestion, nasal drainage Similar Symptoms Previously?: Yes (DX with pneumonia) Recently seen or treated by another doctor?: Yes Review of Systems - Adult - REVIEW OF SYSTEMS - ADULT Constitutional: denies: chills, fever Eyes: reports: no symptoms reported Ears, Nose, Mouth & Throat: denies: ear pain, sinus problem, throat pain Cardiovascular: denies: chest pain, palpitations Respiratory: reports: cough, shortness of breath, wheezing Gastrointestinal: denies: abdominal pain, diarrhea, nausea, vomiting Genitourinary: reports: no symptoms reported Musculoskeletal: reports: no symptoms reported Integumentary: reports: no symptoms reported Neurological: reports: no symptoms reported Psychiatric: reports: no symptoms reported Endocrine: reports: no symptoms reported Hematologic/Lymphatic: reports: no symptoms reported Allergic/Immunologic: reports: no symptoms reported Past History - Adult - PAST MEDICAL HISTORY-ADULT Review of Records: reports: Old Records Reviewed, Nursing Assessment Review, Medications Reviewed Cardiovascular: reports: arrhythmia (tachycardia), HTN, hyperlipidemia Respiratory: reports: bronchitis, COPD Gastrointestinal: reports: GERD - PRIOR SURGERIES/PROCEDURES Surgical/Procedure History: reports: hysterectomy - IMMUNIZATION STATUS Childhood Immunizations: See Nurse Assessment Flu Vaccine: See Nurse Assessment - FAMILY HISTORY Family History: reviewed, not pertinent - SOCIAL HISTORY Smoking: quit greater than 1 year, cigarettes Living Situation: family Physical Exam-General - PHYSICAL EXAM-ADULT Initial Vital Signs Reviewed: Yes - CONSTITUTIONAL General Appearance: alert, mild distress - EYES Eyes: PERRL/EOMI, pink conjunctivae - HEAD, EARS, NOSE, MOUTH & THROAT HENMT: normocephalic/atraumatic, moist mucous membranes, normal ENT inspection - NECK Neck: non-tender, full range of motion - RESPIRATORY Respiratory: chest non-tender, rales - CARDIOVASCULAR Cardiovascular: no edema, no JVD, tachycardia - GASTROINTESTINAL (ABDOMEN) Abdominal Exam: normal bowel sounds, non tender, soft - LYMPHATIC Lymphatic: no adenopathy - MUSCULOSKELETAL Back Exam: normal inspection, no CVA tenderness, no vertebral tenderness Extremity: normal range of motion, non-tender - SKIN Integumentary: normal color, normal turgor, warm/dry - NEUROLOGIC Neurologic: grossly normal - PSYCHIATRIC Psych/Mental Status: normal mood/affect, normal thought content, oriented x 3 Progress - PLAN OF CARE/RESULTS Progress/Plan/Lab Results: Vital Signs - 8 hr 01/05/17 09:26 Temperature 98.7 F Pulse Rate 111 H Blood Pressure 151/093 O2 Sat by Pulse Oximetry 86 L Laboratory Results - last 24 hr 01/05/17 01/05/17 01/05/17 09:45 09:45 09:45 WBC RBC Hgb Hct MCV MCH MCHC RDW Std Deviation Plt Count MPV Immature Gran % (Auto) Neut % (Auto) Lymph % (Auto) Isabella % (Auto) Eos % (Auto) Baso % (Auto) Immature Gran # (Auto) Neut # (Auto) Lymph # (Auto) Isabella # (Auto) Eos # (Auto) Baso # (Auto) PT INR APTT (Factor Assay) Sodium 140 Potassium 3.6 Chloride 90 L Carbon Dioxide 44 H Anion Gap 6 BUN 12 Creatinine 0.4 L Estimated GFR/1.73 m2 > 60 BUN/Creatinine Ratio 30 Glucose 159 H Calculated Osmolality 283 Calcium 10.6 H Magnesium 1.8 Total Bilirubin < 0.15 L AST 8 L ALT 21 Alkaline Phosphatase 94 Creatine Kinase 14 L Troponin T < 0.010 [id number] Pept 288 H Total Protein 7.1 Albumin 3.5 Globulin 4.0 Albumin/Globulin Ratio 1.0 01/05/17 01/05/17 09:45 09:45 WBC 7.70 RBC 4.24 Hgb 12.8 Hct 42.3 MCV 99.8 H MCH 30.2 MCHC 30.3 L RDW Std Deviation 12.8 Plt Count 352 MPV 8.9 Immature Gran % (Auto) 0.3 Neut % (Auto) 73.0 Lymph % (Auto) 11.9 L Isabella % (Auto) 14.3 H Eos % (Auto) 0.4 Baso % (Auto) 0.1 Immature Gran # (Auto) 0.02 Neut # (Auto) 5.62 Lymph # (Auto) 0.92 L Isabella # (Auto) 1.10 H Eos # (Auto) 0.03 Baso # (Auto) 0.01 PT 12.9 INR 0.94 APTT (Factor Assay) 33.9 Sodium Potassium Chloride Carbon Dioxide Anion Gap BUN Creatinine Estimated GFR/1.73 m2 BUN/Creatinine Ratio Glucose Calculated Osmolality Calcium Magnesium Total Bilirubin AST ALT Alkaline Phosphatase Creatine Kinase Troponin T [id number]-Sttkcaneusm Pept Total Protein Albumin Globulin Albumin/Globulin Ratio Orders Category Date Time Status Cardiac Monitoring DIRECTED Care 01/05/17 09:45 Active Oxygen Therapy- ED Nursing DIRECTED Care 01/05/17 09:45 Active Saline Loc NOW Care 01/05/17 09:45 Active CHEST-PORTABLE [RAD] Stat Exams 01/05/17 09:46 Completed ABG [RESP] Routine Lab 01/05/17 10:31 Ordered CBC WITH ELECTRONIC DIFF [HEME] Stat Lab 01/05/17 09:45 Completed CK PROFILE [SP CHEM] Stat Lab 01/05/17 09:45 Completed COMPREHENSIVE METABOLIC PANEL [CHEM] Stat Lab 01/05/17 09:45 Completed MAGNESIUM [CHEM] Stat Lab 01/05/17 09:45 Completed PRO B-NATRIURETIC PEPTIDE Stat Lab 01/05/17 09:[address]IME WITH INR [address] [COAG] Stat Lab 01/05/17 09:[address] [COAG] Stat Lab 01/05/17 09:45 Completed TROPONIN T Stat Lab 01/05/17 09:45 Completed Albuterol 2.5MG/Ipratrop 0.5MG [Duoneb (A & A)] Med 01/05/17 10:46 Discontinued 3 ml INH NOW ONE Albuterol 2.5MG/Ipratrop 0.5MG [Duoneb (A & A)] Med 01/05/17 10:48 Discontinued 3 ml INH NOW ONE Aspirin Med 01/05/17 09:45 Discontinued 325 mg PO STAT STA Azithromycin 500 mg/Ns [Zithromax 500 mg/Ns] Med 01/05/17 10:54 Active 500 mg in 250 ml IV NOW Levofloxacin 500 mg/D5w [Levaquin 500 mg/D5w] Med 01/05/17 10:54 Active 500 mg in 100 ml IV NOW Aerosol Treatments Routine Oth 01/05/17 10:47 Active Aerosol Treatments Routine Oth 01/05/17 10:48 Active Aerosol Treatments Stat Oth 01/05/17 10:47 Active Aerosol Treatments Stat Oth 01/05/17 10:48 Active EKG [EKG] Stat Ther 01/05/17 09:45 Draft Vital Signs Temp Pulse BP Pulse Ox 01/05/17 09:26 98.7 F 111 H 151/093 86 L Penicillins Allergy (Severe, Verified 01/05/17 09:31) loss of consciousness Primidone [Mysoline] 250 mg PO BID 04/08/13 Roflumilast [Daliresp] 500 microgm PO DAILY 04/08/13 Sertraline HCl [Zoloft] 100 mg PO DAILY 04/08/13 Tiotropium [place] Inhaler [Spiriva] 1 puff INH RTDAILY 10/01/13 Sertraline HCl 100 mg DAILY 12/04/16 Albuterol Sulfate [Proair Hfa] 1 puff Q4-6H PRN PRN 12/07/16 Fluticasone/Salmeterol [Advair 500-50 Diskus] 1 puff BID 12/07/16 PRAVAstatin [Pravachol] 40 mg PO HS 12/07/16 Albuterol 2.5MG/Ipratrop 0.5MG [Duoneb (A & A)] 3 ml INH RTQ4H #30 neb 12/16/16 Diltiazem C.d. [Cardizem Cd] 360 mg PO DAILY #30 capsule 12/16/16 Levofloxacin [Levaquin] 750 mg PO DAILY #5 tablet 12/16/16 Nortriptyline HCl 50 mg PO HS #0 12/16/16 Pantoprazole [Protonix] 40 mg PO DAILY@0700 tablet 12/16/16 Prednisone 40 mg PO DAILY tablet 12/16/16 Laboratory 01/05/17 01/05/17 01/05/17 09:45 09:45 09:45 WBC 7.70 RBC 4.24 Hgb 12.8 Hct 42.3 MCV 99.8 H MCH 30.2 MCHC 30.3 L RDW Std Deviation 12.8 Plt Count 352 MPV 8.9 Immature Gran % (Auto) 0.3 Neut % (Auto) 73.0 Lymph % (Auto) 11.9 L Isabella % (Auto) 14.3 H Eos % (Auto) 0.4 Baso % (Auto) 0.1 Immature Gran # (Auto) 0.02 Neut # (Auto) 5.62 Lymph # (Auto) 0.92 L Isabella # (Auto) 1.10 H Eos # (Auto) 0.03 Baso # (Auto) 0.01 PT 12.9 INR 0.94 APTT (Factor Assay) 33.9 Sodium Potassium Chloride Carbon Dioxide Anion Gap BUN Creatinine Estimated GFR/1.73 m2 BUN/Creatinine Ratio Glucose Calculated Osmolality Calcium Magnesium Total Bilirubin AST ALT Alkaline Phosphatase Creatine Kinase Troponin T Wbg-[id number]-Wqhemvmyual Pept 288 H Total Protein Albumin Globulin Albumin/Globulin Ratio 01/05/17 01/05/17 09:45 09:45 WBC RBC Hgb Hct MCV MCH MCHC RDW Std Deviation Plt Count MPV Immature Gran % (Auto) Neut % (Auto) Lymph % (Auto) Isabella % (Auto) Eos % (Auto) Baso % (Auto) Immature Gran # (Auto) Neut # (Auto) Lymph # (Auto) Isabella # (Auto) Eos # (Auto) Baso # (Auto) PT INR APTT (Factor Assay) Sodium 140 Potassium 3.6 Chloride 90 L Carbon Dioxide 44 H Anion Gap 6 BUN 12 Creatinine 0.4 L Estimated GFR/1.73 m2 > 60 BUN/Creatinine Ratio 30 Glucose 159 H Calculated Osmolality 283 Calcium 10.6 H Magnesium 1.8 Total Bilirubin < 0.15 L AST 8 L ALT 21 Alkaline Phosphatase 94 Creatine Kinase 14 L Troponin T < 0.010 Gjk-J-Gmviscppwox Pept Total Protein 7.1 Albumin 3.5 Globulin 4.0 Albumin/Globulin Ratio 1.0 Due to abnormal ABGs patient will be placed on BiPAP Result Diagrams: 01/05/17 09:45 01/05/17 09:45 - EKG 1 Time of EKG reading by physician:: 09:54 EKG Read and Signed by:: Brian Rios EKG Interpretation (*Must complete 3 of following elements*): Abnormal Rate: 121 Rhythm: Sinus tachycardia [place]: normal QRS: normal ST Wave: non-specific ST changes Comments: TARA - XRAY 1 XRAY Study: Chest Impression: Abnormal Comparison with other Films: changes noted XRAY Interpretation: Increased opacity in the right midlung zone suggesting worsening consolidat - CONSULTS/PCP/HOSPITALIST Notification #1 *Consult/PCP/Hospitalist*: Dr Ma (hospitalist) Time Discussed: 10:53 Reason/Comments: Pneumonia and SOB Consult Disposition: Admit Departure - Departure Date of Disposition Decision: 01/05/17 Time of Disposition Decision: 10:55 DIAGNOSIS: Pneumonia, Dyspnea, Hypoxia Disposition: ADMITTED INPATIENT 09 Certified Medical Emergency: Emergent Condition: Stable Referrals and Follow-Ups: Ashley Matute MD [Primary Care Provider] - - Critical Care Note This patient required my direct & personal management of CC.: Yes Total Time (mins): 45 Critical Care Statement: This patient required my direct personal management to treat or rule out processes, the absence of which, could potentiallly result in sudden, clinically significant life or limb threatening deterioration. Attestation - Physician/ LILLIE Attestation The physician spent face to face time with patient:: Yes Advanced Practice Provider documentation review:: The physician spent face to face time with this patient and agrees with all MLP documentation, treatment, and medical decision making by the MLP. See provider notes for further information. This chart was documented by the indicated scribe, (Chencho Kunz, Scribe) and accurately reflects the services I performed and decisions made by me, Brian Rios MD, as attested by the provider's signature.
[2017-01-05 11:25] LABS: ALLEN TEST YES; DRAW SITE R RADIAL; MODALITY CANNULA; PCO2(98.6) 95 mmHg (35-45)
[2017-01-05] MEDS ORDERED: DUONEB (A & A) INH PRN (12:49)
[2017-01-05] MEDS ORDERED: VANCOMYCIN IV PER PHARMACY MISC SCH (13:00)
[2017-01-05] MEDS ORDERED: NS 1,000 ML IV SCH (13:02)
[2017-01-05] MEDS: SOLU-MEDROL IV SCH ×2 (13:26→21:28)
[2017-01-05 13:32] LABS: BE 20.1 mmoll (-3.0-3.0); BLOOD TYPE ARTERIAL; METHB 1.3 % (0.0-1.5); O2(CT) 15.1 mL/dL (15.0-23.0); PO2(98.6) 74 mmHg (60-100); SAMPLE BLOOD; SAO2 96.3 % (95.0-100.0); THB 11.5 g/dL (11.5-17.4); pH(98.6) 7.36 (7.35-7.45)
[2017-01-05 13:42] LABS: MODALITY BI PAP
[2017-01-05] MEDS ORDERED: XANAX PO PRN (13:42)
[2017-01-05 13:43] LABS: ALLEN TEST YES; DRAW SITE R RADIAL
[2017-01-05] MEDS: DUONEB (A & A) INH SCH ×3 (14:55→22:32)
[2017-01-05] MEDS ORDERED: VANCOMYCIN 1,500 MG in NS 250 ML IV ONE (15:00)
[2017-01-05] MEDS: AZACTAM 1 GM in NS 50 ML IV SCH ×2 (15:01→21:28)
[2017-01-05] MEDS: TYLENOL PO PRN (15:48)
[2017-01-05] MEDS ORDERED: PAMELOR PO SCH (21:00)
[2017-01-05] MEDS: PRAVACHOL PO SCH (21:29)
[2017-01-05] MEDS: MYSOLINE PO SCH (21:29)
[2017-01-06] MEDS: VANCOMYCIN 1 GM/NS 1 GM/250 ML IVPB IV SCH ×2 (02:16→16:23)
[2017-01-06] MEDS: DUONEB (A & A) INH SCH ×6 (03:17→23:35)
[2017-01-06 05:49] LABS: BE 17.3 mmoll (-3.0-3.0); BLOOD TYPE ARTERIAL; DRAW SITE L RADIAL; METHB 1.1 % (0.0-1.5); O2(CT) 14.1 mL/dL (15.0-23.0); PO2(98.6) 98 mmHg (60-100); SAMPLE BLOOD; SAO2 98.6 % (95.0-100.0); THB 10.4 g/dL (11.5-17.4); pH(98.6) 7.37 (7.35-7.45)
[2017-01-06] MEDS: SOLU-MEDROL IV SCH ×3 (05:51→21:49)
[2017-01-06] MEDS: AZACTAM 1 GM in NS 50 ML IV SCH ×3 (05:51→21:49)
[2017-01-06 05:55] LABS: ALLEN TEST YES; MODALITY BI PAP; PCO2(98.6) 79 mmHg (35-45)
[2017-01-06] MEDS: PROTONIX PO SCH (06:31)
[2017-01-06 06:56] LABS: HEMATOCRIT 36.3 % (37.0-47.0); HEMOGLOBIN 10.9 g/dL (12.0-16.0); MCH 30.4 PG (27-31); MCV 101.4 FL (81-99); RBC 3.58 XMIL (4.2-5.4)
[2017-01-06 07:31] LABS: AGAP 9; ALBUMIN 2.9 g/dL (3.5-5.0); ALKALINE PHOSPHATASE 80 U/L (32-104); BUN 13 mg/dL (8-22); CALCIUM 9.9 mg/dL (8.8-10.2); CHLORIDE 94 mmol/L (98-107); COSMO 283; GOT 10 U/L (10-30); GPT 15 U/L (10-36); POTASSIUM 4.3 mmol/L (3.5-5.1); SODIUM 140 mmol/L (136-145); TCO2 37 mmol/L (25-35); TOTAL BILIRUBIN < 0.15 mg/dL (0.20-1.00); TOTAL PROTEIN 6.7 g/dL (6.3-8.3)
[2017-01-06] MEDS: SPIRIVA INH SCH (07:45)
--- NOTE | 2017-01-06 08:06 | Diag Imaging Result Doc PS360 ---
CT THORAX W/CONTRAST - 01/06/2017 INDICATION: COPD, ? endobronchial lesion or mass, right lung TECHNIQUE: A CT dose reduction protocol was used. COMPARISON: 06/25/2016 FINDINGS: There is increasing irregular infiltrate in the posterior segment of the right upper lobe. Stable extremely severe pulmonary emphysema. Stable chronic bronchitis. Stable 7 mm indeterminate pulmonary nodule in the right upper lobe. No airway obstruction. No significant adenopathy. Heart and great vessels are normal. Upper abdominal images are unremarkable. IMPRESSION: 1. Multifocal irregular infiltrate in the right upper lobe. Correlate for possible pneumonia. No obvious mass or airway obstruction. 2. Other extensive processes are stable from prior. Electronically signed by Alan Machado 01/06/2017 8:04 AM
[2017-01-06] MEDS ORDERED: CARDIZEM CD PO SCH (09:00)
[2017-01-06] MEDS: DALIRESP PO SCH (09:08)
[2017-01-06] MEDS: ZOLOFT PO SCH (09:08)
[2017-01-06] MEDS: CARDIZEM CD PO SCH (09:10)
[2017-01-06] MEDS: MYSOLINE PO SCH ×2 (09:11→21:50)
[2017-01-06] MEDS: TOPROL XL PO SCH (09:11)
[2017-01-06] MEDS: KLOR-CON PO SCH (09:18)
[2017-01-06] MEDS: LEVAQUIN 500 MG/D5W 500 MG/100 ML IVPB IV SCH (11:03)
[2017-01-06 11:11] LABS: PCO2(98.6) 88 mmHg (35-45)
--- NOTE | 2017-01-06 11:13 | HISTORY AND PHYSICAL ---
CHIEF COMPLAINT: Shortness of breath. HISTORY OF PRESENT ILLNESS: This is a 56-year-old, female with a history of COPD, currently on Trilogy at home, who presented to the emergency room complaining of shortness of breath that started about 24 hours prior to ER arrival. She stated this started with dyspnea on exertion. It progressed to shortness of breath at rest. Her oxygen saturation was 86% on 2 L per her saturation monitor. Therefore, she presented to the emergency room for further evaluation. Of note, she was hospitalized December 02 through I think the 12 of December for pneumonia. She was discharged to rehab. She states she got out of rehab just 5 or 6 days ago. She denied any fever, chills, or chest pain. A chest x-ray revealed increasing opacity in the right mid lung, suggesting worsening consolidation with COPD changes. ABGs revealed a CO2 of 95. In reviewing her old records, her norm looks like it runs 60s to 70s. She was placed on BiPAP, and admitted for further evaluation and treatment. PAST MEDICAL HISTORY: COPD, hypertension, dyslipidemia, chronic steroid therapy. PAST SURGICAL HISTORY: Hysterectomy. SOCIAL HISTORY: She denies alcohol, tobacco, or illicit drug use. She does live alone but has children that are close by and very active in her care. ALLERGIES: Penicillin which causes loss of consciousness. HOME MEDICATIONS: Cardizem CD 240 daily, metoprolol succinate 100 mg daily, potassium chloride 10 mEq daily, Spiriva 1 puff daily, Zoloft 100 mg daily, Daliresp 500 mcg daily, Mysoline 250 b.i.d., prednisone 40 mg daily, Protonix 40 mg daily, Pravachol 40 mg at bedtime, Advair 50/500 one puff b.i.d., ProAir 1 puff q.4-6 hours p.r.n., and DuoNebs q.4 hours. REVIEW OF SYSTEMS: A 14 point review of systems is discussed with patient with pertinent positives stated in the HPI. She denied chest pain, palpitations, dizziness, syncope, PND, productive cough, nausea, vomiting, diarrhea, constipation, black or bloody vomitus, black or bloody stools, hematuria, dysuria, frequency, urgency. PHYSICAL EXAMINATION: GENERAL: This is a 56-year-old female who is sitting up in the bed on BiPAP and in no distress. VITAL SIGNS: Blood pressure is 129/79, with a heart rate of 116, respirations are 18, temperature is 98.7 degrees, O2 saturations are 96-97% on BiPAP with 32% FiO2. HEENT: Head is normocephalic, atraumatic. Pupils equal, round, react to light. EOMs are intact. Sclerae are anicteric. Mucous membranes are moist. NECK: Supple with trachea midline. CARDIOVASCULAR: Regular rate and rhythm. S1 and S2 are appreciated. PULMONARY: Breath sounds with wheezing and rhonchi throughout. Rhonchi did not clear to cough. GASTROINTESTINAL: Soft, nontender, nondistended. Bowel sounds in all 4 quadrants. MUSCULOSKELETAL: Good range of motion to joints. EXTREMITIES: No clubbing, cyanosis, or edema. Calves are nontender. Pulses are palpable x4. NEUROLOGIC: She is alert and oriented x3. DIAGNOSTICS: WBC is 7.7 with hemoglobin 12.8, hematocrit 42.3, and platelets of 352,000. D-dimer 0.33. Sodium is 140, potassium 3.6, BUN 12, creatinine 0.4, with a glucose of 159, calcium is 10.6. Chest x-ray reveals increasing opacity to the right mid lung zone. ASSESSMENT AND PLAN: 1. Pneumonia, right mid lung zone. 2. Chronic obstructive pulmonary disease, acute on chronic exacerbation. 3. Hypoxemia. 4. Hypercapnic respiratory failure. 5. Hypertension. 6. Moderate protein calorie malnutrition. 7. Generalized deconditioning. PLAN: She will be admitted to the hospital. We will continue BiPAP at present. We will trend blood gases in the morning. Blood cultures were obtained. We will obtain a sputum specimen. Antibiotic coverage of Levaquin and vancomycin. We will identify her home medications and continue. We will add aztreonam for antibiotic coverage. DuoNebs q.4 hours to q.2 hours p.r.n. We will continue the appropriate inhalers. She will be placed on telemetry with patterned blood glucose and sliding scale insulin. We will give steroids to taper. Further treatments pending hospital course. Dictated by JOCELINE Hogue for Ra Ma MD cc: JOCELINE Hogue MD
--- NOTE | 2017-01-06 11:18 | PROGRESS NOTE ---
DATE: 01/06/2017 SUBJECTIVE: Ms. Caldwell has no complaints at present. She is on 2 L nasal cannula with O2 saturations of 96%. She denies chest pain, palpitations, nausea, vomiting, PND, orthopnea. OBJECTIVE: Vital signs: Blood pressure is 132/72 with a heart rate of 120, temperature is 97.4 degrees with saturations of 96% to 98% on 2 L nasal cannula. Cardiovascular: Regular rate and rhythm. S1 and S2 are appreciated. Pulmonary: She continues with rhonchi scattered throughout with no increased work of breathing noted. Gastrointestinal: Abdomen is soft, nontender, nondistended. Bowel sounds in all 4 quadrants. Neurologic: She is alert and oriented x3. DIAGNOSTICS: WBC is 8.2 with hemoglobin 10.9, hematocrit 36.3 and platelets of 336. Sodium is 140, potassium 4.3, BUN 13, creatinine 0.4 with a glucose of 157. ABGs: A pH is 7.37 with a pCO2 of 79, PO2 of 98 with a bicarbonate of 38.4. This is on BiPAP 20/6 at 32%. ASSESSMENT: 1. Right mid zone lung pneumonia. 2. Hypoxemia. 3. Hypercapnic. 4. Chronic obstructive pulmonary disease, acute on chronic exacerbation. 5. Hypertension. 6. Moderate protein calorie malnutrition. PLAN: We will continue with the current regimen. We will decrease steroids. Blood cultures and sputum culture are pending. In review of the patient's records, she did have a CT of the chest in June 2016 with a 9 x 8 mm noncalcified nodule at the right middle lobe that is stable, although she did have a previous chest x-ray on 12/02 that per radiology read revealed superior right lower lobe and anterior right upper and middle lobe airspace disease with an endobronchial lesion or mass not being excluded with a CT of the thorax recommended. Therefore, CT has been ordered for today. Dictated by JOCELINE Hogue for Ra Ma MD cc: JOCELINE Hogue MD
[2017-01-06] MEDS: TYLENOL PO PRN (16:29)
[2017-01-06] MEDS: PRAVACHOL PO SCH (21:49)
[2017-01-07] MEDS: VANCOMYCIN 1 GM/NS 1 GM/250 ML IVPB IV SCH (02:24)
[2017-01-07] MEDS: DUONEB (A & A) INH SCH ×6 (03:40→22:47)
[2017-01-07 04:02] LABS: BE 17.5 mmoll (-3.0-3.0); BLOOD TYPE ARTERIAL; DRAW SITE R RADIAL; METHB 0.8 % (0.0-1.5); O2(CT) 14.2 mL/dL (15.0-23.0); PO2(98.6) 101 mmHg (60-100); SAMPLE BLOOD; SAO2 98.4 % (95.0-100.0); SRATE 12 BPM; THB 10.4 g/dL (11.5-17.4); pH(98.6) 7.41 (7.35-7.45)
[2017-01-07 04:12] LABS: ALLEN TEST YES; MODALITY ROOM AIR; PCO2(98.6) 71 mmHg (35-45)
[2017-01-07] MEDS: SOLU-MEDROL IV SCH ×3 (05:38→21:13)
[2017-01-07] MEDS: AZACTAM 1 GM in NS 50 ML IV SCH ×3 (05:38→21:14)
[2017-01-07] MEDS: PROTONIX PO SCH ×2 (05:39→06:22)
[2017-01-07] MEDS: SPIRIVA INH SCH (08:30)
[2017-01-07] MEDS: MYSOLINE PO SCH ×2 (09:23→21:14)
[2017-01-07] MEDS: ZOLOFT PO SCH (09:23)
[2017-01-07] MEDS: DALIRESP PO SCH (09:23)
[2017-01-07] MEDS: KLOR-CON PO SCH (09:23)
[2017-01-07] MEDS: CARDIZEM CD PO SCH (09:24)
[2017-01-07] MEDS: KLONOPIN PO PRN ×2 (09:24→21:20)
[2017-01-07] MEDS: TOPROL XL PO SCH (09:24)
--- NOTE | 2017-01-07 10:46 | PROGRESS NOTE ---
DATE: 01/07/2017 SUBJECTIVE: The patient states she is still very short of breath, tired, fatigued, still having palpitations when she gets up and attempts to move about. PHYSICAL EXAMINATION: Vital Signs: Temperature 98, pulse 95, respiratory 20, BP 150/85, sat 98% on 2 L. General: Patient is awake, alert. She currently appears back to her baseline respiratory status which is moderate distress. HEENT: Normocephalic, atraumatic. HAY. Neck: Supple. CV: Regular rate. Chest: Decreased breath sounds but equal bilaterally. Abdomen: Soft. Extremities: Moves all extremities. Neurologic: No changes. ASSESSMENT: 1. Hypercapnic respiratory failure, improved. The patient is back to her baseline. 2. Hyperglycemia, stable. 3. Hypercalcemia, resolved. 4. Mild protein calorie malnutrition. 5. Adult failure to thrive with chronic generalized deconditioning. PLAN: We will get physical therapy involved today. Certainly patient appears to be at her baseline. We have had discussions with her in the past. I do not feel as though her going home is in her best interest although she continues to decline rehab. We will start her back on her Advair. She appears at this point to have lung volume to support doing Advair. She will need to continue very close follow up outpatient and hopefully home in the next day or two. cc: Ra Ma MD
[2017-01-07] MEDS: LEVAQUIN 500 MG/D5W 500 MG/100 ML IVPB IV SCH (11:22)
[2017-01-07] MEDS: VANCOMYCIN 1,200 MG in NS 250 ML IV SCH (15:59)
[2017-01-07] MEDS: ADVAIR 500/50 DISKUS INH SCH ×2 (19:39→19:40)
[2017-01-07] MEDS: PRAVACHOL PO SCH (21:13)
[2017-01-08] MEDS: DUONEB (A & A) INH SCH ×6 (03:15→23:13)
[2017-01-08] MEDS: VANCOMYCIN 1,200 MG in NS 250 ML IV SCH ×2 (05:03→17:38)
[2017-01-08] MEDS: SOLU-MEDROL IV SCH ×2 (06:51→18:44)
[2017-01-08] MEDS: PROTONIX PO SCH (06:51)
[2017-01-08] MEDS: ADVAIR 500/50 DISKUS INH SCH ×2 (07:25→19:57)
[2017-01-08] MEDS: SPIRIVA INH SCH (07:25)
[2017-01-08] MEDS: AZACTAM 1 GM in NS 50 ML IV SCH ×2 (09:43→16:38)
[2017-01-08] MEDS: DALIRESP PO SCH (09:50)
[2017-01-08] MEDS: KLOR-CON PO SCH (09:50)
[2017-01-08] MEDS: ZOLOFT PO SCH (09:50)
[2017-01-08] MEDS: CARDIZEM CD PO SCH (09:50)
[2017-01-08] MEDS: TOPROL XL PO SCH (09:51)
[2017-01-08] MEDS: MYSOLINE PO SCH ×2 (09:52→20:34)
[2017-01-08] MEDS: LEVAQUIN 500 MG/D5W 500 MG/100 ML IVPB IV SCH (12:09)
--- NOTE | 2017-01-08 14:35 | PROGRESS NOTE ---
DATE: 01/08/2017 SUBJECTIVE: The patient states that she is still short of breath and fatigued. She states symptoms increased and she has palpitations when she attempts to get up and move around. OBJECTIVE: Vital Signs: Blood pressure is 116/57, with a heart rate of 72, respirations are 16, temperature is 98.8 degrees, with O2 saturations of 97%-98% on 2 L nasal cannula. Cardiovascular: Regular rate and rhythm. S1 and S2 appreciated. Pulmonary: Breath sounds. She continues with some wheezes scattered throughout, with no increased work of breathing noted. Gastrointestinal. Gastrointestinal: Abdomen is soft, nontender, nondistended, with bowel sounds in all 4 quadrants. Extremities: No clubbing, cyanosis, or edema. Calves are nontender. Pulses are palpable x4. DIAGNOSTIC DATA: Blood glucose is running in the 150s. ASSESSMENT: 1. Hypercapnic respiratory failure, improving. The patient is back to her baseline. 2. Hyperglycemia. This is stable. 3. Hypercalcemia. Resolved. 4. Mild protein calorie malnutrition. 5. Adult failure to thrive with chronic general deconditioning. PLAN: Will continue with physical therapy. Ms. Caldwell certainly appears to be at her baseline. Once again, I did have a discussion with her regarding rehab, stating that it is not in her best interest to go home. She states that she has no intention of going to rehab and that she wants to go home. She does have an appointment scheduled with Dr. Thornton with Pulmonology so that she will have outpatient follow up. Dictated by JOCELINE Hogue for Ra Ma MD cc: JOCELINE Hogue MD
[2017-01-08] MEDS: KLONOPIN PO PRN (18:44)
[2017-01-08] MEDS: PRAVACHOL PO SCH (20:34)
[2017-01-09] MEDS: AZACTAM 1 GM in NS 50 ML IV SCH ×2 (00:20→09:48)
[2017-01-09] MEDS: DUONEB (A & A) INH SCH ×6 (03:16→22:49)
[2017-01-09] MEDS: VANCOMYCIN 1,200 MG in NS 250 ML IV SCH ×2 (05:16→17:19)
[2017-01-09] MEDS: SOLU-MEDROL IV SCH ×2 (06:02→18:30)
[2017-01-09] MEDS: PROTONIX PO SCH (06:03)
[2017-01-09] MEDS: SPIRIVA INH SCH (07:35)
[2017-01-09] MEDS: ADVAIR 500/50 DISKUS INH SCH ×2 (07:35→19:36)
[2017-01-09] MEDS: KLOR-CON PO SCH (09:48)
[2017-01-09] MEDS: DALIRESP PO SCH (09:49)
[2017-01-09] MEDS: TOPROL XL PO SCH (09:49)
[2017-01-09] MEDS: MYSOLINE PO SCH ×2 (09:49→20:25)
[2017-01-09] MEDS: ZOLOFT PO SCH (09:49)
[2017-01-09] MEDS: CARDIZEM CD PO SCH (09:50)
[2017-01-09] MEDS: LEVAQUIN PO SCH (11:17)
[2017-01-09 15:55] LABS: HEMATOCRIT 39.5 % (37.0-47.0); HEMOGLOBIN 12.1 g/dL (12.0-16.0); MCH 30.5 PG (27-31); MCHC 30.6 g/dL (33-37); MCV 99.5 FL (81-99); RBC 3.97 XMIL (4.2-5.4)
--- NOTE | 2017-01-09 15:59 | PROGRESS NOTE ---
DATE: 01/09/2017 SUBJECTIVE: The patient says she is still short of breath and fatigued. She continues to state that this does get worse with movement. OBJECTIVE: Vital Signs: Blood pressure is 148/94, with a heart rate of 99, respirations are 16, temperature is 98.3 degrees oral with O2 saturations of 96%-97% alternating between BiPAP and nasal cannula. Cardiovascular: Regular rate and rhythm. S1 and S2 appreciated. Pulmonary: Breath sounds continue with scattered wheezes and rhonchi. Chest does rise and fall symmetrically with respiration. Gastrointestinal: Abdomen is soft, nontender, nondistended. With bowel sounds in all 4 quadrants. Extremities: No clubbing, cyanosis, or edema. Calves are nontender. Pulses are palpable x4. Neurologic: She is alert and oriented x3. DIAGNOSTICS: Blood sugars are ranging in the 140-190 range. ASSESSMENT: 1. Hypercapnic respiratory failure. The patient is back at her baseline. 2. Hyperglycemia. This is stable. 3. Hypercalcemia. Resolved. 4. Mild protein calorie malnutrition. 5. Adult failure to thrive with chronic general deconditioning. 6. Chronic obstructive pulmonary disease. PLANS: We will continue with her current therapy. We will attempt to get Ms. Caldwell to increase her activity. Hopefully home in the morning. Dictated by JOCELINE Hogue for Ra Ma MD cc: JOCELINE Hogue MD
--- NOTE | 2017-01-09 16:06 | PROGRESS NOTE ---
DATE: 01/09/2017 SUBJECTIVE: Patient notes that she is feeling a little bit better. Still a little weak, tired and fatigued. Denies any palpitations, fevers or chills but states she is having difficulty getting out of bed. Constantly weak and tired. PHYSICAL: Temp 98 degrees, pulse 99, respiratory rate 18, BP 148/98, sat 96% on BiPAP.HEENT: Normocephalic, atraumatic. Neck: Supple. CV: Regular rate. Chest: Decreased breath sounds bilaterally. Moderately labored. Occasional wheezing. Abdomen: Soft. Extremities: Moves all extremities. Neuro: No change. ASSESSMENT: 1. Severe end-stage COPD with hypoxic respiratory failure. 2. Pneumonia. 3. Hypercapnic respiratory failure. 4. Moderate protein calorie malnutrition. 5. General deconditioning. PLAN: At this point, we will start decreasing the patient patient's antibiotics and continue on Solu-Medrol 40 q.12h. Continue vancomycin and Levaquin. Further orders as needed. cc: Ra Ma MD
[2017-01-09 16:14] LABS: AGAP 7; BUN 11 mg/dL (8-22); CALCIUM 9.4 mg/dL (8.8-10.2); CHLORIDE 94 mmol/L (98-107); COSMO 280; POTASSIUM 4.3 mmol/L (3.5-5.1); SODIUM 140 mmol/L (136-145); TCO2 39 mmol/L (25-35)
[2017-01-09] MEDS ORDERED: MAALOX PLUS LIQUID PO PRN (17:43)
[2017-01-09] MEDS: PRAVACHOL PO SCH (20:24)
[2017-01-10] MEDS: VANCOMYCIN 1,200 MG in NS 250 ML IV SCH (03:46)
[2017-01-10] MEDS: DUONEB (A & A) INH SCH ×6 (03:57→23:20)
[2017-01-10] MEDS: SOLU-MEDROL IV SCH ×2 (06:03→18:36)
[2017-01-10] MEDS: PROTONIX PO SCH (06:03)
[2017-01-10] MEDS: SPIRIVA INH SCH (07:27)
[2017-01-10] MEDS: ADVAIR 500/50 DISKUS INH SCH ×2 (07:27→19:49)
[2017-01-10] MEDS: DALIRESP PO SCH (10:38)
[2017-01-10] MEDS: CARDIZEM CD PO SCH (10:38)
[2017-01-10] MEDS: MYSOLINE PO SCH ×2 (10:38→21:26)
[2017-01-10] MEDS: KLOR-CON PO SCH (10:38)
[2017-01-10] MEDS: TOPROL XL PO SCH (10:38)
[2017-01-10] MEDS: ZOLOFT PO SCH (10:39)
--- NOTE | 2017-01-10 11:13 | Diag Imaging Result Doc PS360 ---
EXAM: CHEST-2 VIEWS INDICATION: hypoxia TECHNIQUE: 2 views COMPARISON: 01/05/2017 FINDINGS: The right midlung zone consolidation seen previously has improved. Scarring is noted in this region. No new consolidations are appreciated. The cardiac silhouette is stable. IMPRESSION: Improvement of the focal consolidation in the right midlung zone. Electronically signed by Dung Johnson 01/10/2017 11:11 AM
--- NOTE | 2017-01-10 11:45 | PROGRESS NOTE ---
DATE: 01/10/2017 SUBJECTIVE: The patient feels a little better. She continues to be weak. She complains of constant weakness and tiredness which has been her norm for quite some time now. OBJECTIVE: Vital Signs: Blood pressure is 141/83, with a heart rate of 92, respirations are 18, temperature is 98.4 degrees oral, with O2 saturations of 98% on 2 L nasal cannula. Cardiovascular: Regular rate and rhythm. S1 and S2 are appreciated. Pulmonary: She has decreased breath sounds bilaterally. She is moderately labored. She does have some scattered wheezes. Gastrointestinal: Abdomen is soft, nontender, nondistended. Bowel sounds in all 4 quadrants. Extremities: No clubbing, cyanosis, or edema. Calves are nontender. Pulses are palpable x4. Neurologic: She is alert and oriented x3. Laboratory Data: Her blood sugars are ranging 114-180s. ASSESSMENT: 1. Severe end-stage chronic obstructive pulmonary disease with hypoxic respiratory failure. 2. Pneumonia. 3. Hypercapnic respiratory failure. 4. Moderate protein calorie malnutrition. 5. General deconditioning. PLAN: We will continue with the current regimen. We will leave her Solu-Medrol 40 mg q.12 hours. We will continue vancomycin and Levaquin. We will encourage her to get out of bed a little more. Dictated by JOCELINE Hogue for Ra Ma MD cc: JOCELINE Hogue MD
[2017-01-10] MEDS: LEVAQUIN PO SCH (12:23)
--- NOTE | 2017-01-10 15:54 | EKG Report ---
Test Performed on : 01/10/2017 3:44:52 PM Test Reason : rhythem verification Blood Pressure : / mmHG Vent. Rate : 102 BPM Atrial Rate : 102 BPM P-R Int : 120 ms QRS Dur : 072 ms QT Int : 340 ms P-R-T Axes : 080 074 079 degrees QTc Int : 443 ms Sinus tachycardia. Right atrial enlargement Borderline ECG When compared with ECG of 05-JAN-2017 09:54, (Unconfirmed) T wave amplitude has increased in Inferior leads Confirmed by Aba Kurtz MD ([id number]) on 01/11/2017 10:34:37 PM
[2017-01-10] MEDS: PRAVACHOL PO SCH (21:26)
[2017-01-11] MEDS: DUONEB (A & A) INH SCH ×6 (03:07→23:00)
[2017-01-11] MEDS: PROTONIX PO SCH (06:16)
[2017-01-11] MEDS: SOLU-MEDROL IV SCH (06:20)
[2017-01-11] MEDS: ADVAIR 500/50 DISKUS INH SCH ×2 (07:51→19:48)
[2017-01-11] MEDS: SPIRIVA INH SCH (07:51)
--- NOTE | 2017-01-11 08:10 | PROGRESS NOTE ---
DATE: 01/11/2017 SUBJECTIVE: The patient without any new complaints. States she is starting to feel a little bit stronger. OBJECTIVE: Vital Signs: Reviewed. She is awake, alert. She is in mild respiratory distress which is likely her baseline. She has been relatively stable. HEENT: Normocephalic, atraumatic. HAY. Neck: Supple. CV: Regular rate. Chest: Decreased breath sounds but equal bilaterally. Occasional wheezing. Abdomen: Soft. Extremities: Moves all extremities. ASSESSMENT: 1. Chronic obstructive pulmonary disease with moderate exacerbation. 2. Chronic tobacco abuse. 3. Chronic hypercapnic respiratory failure. PLAN: We will continue BiPAP p.r.n. We have decreased her antibiotics. We will continue her steroids today. Continue to attempt physical therapy. The patient certainly would benefit from long-term placement although she has declined. cc: Ra Ma MD
[2017-01-11] MEDS: TOPROL XL PO SCH (08:51)
[2017-01-11] MEDS: ZOLOFT PO SCH (08:51)
[2017-01-11] MEDS: CARDIZEM CD PO SCH (08:51)
[2017-01-11] MEDS: KLOR-CON PO SCH (08:51)
[2017-01-11] MEDS: MYSOLINE PO SCH ×2 (08:51→20:32)
[2017-01-11] MEDS: DALIRESP PO SCH (08:52)
[2017-01-11] MEDS: LEVAQUIN PO SCH (11:36)
[2017-01-11] MEDS: PREDNISONE PO SCH ×2 (13:41→20:32)
[2017-01-11] MEDS: PRAVACHOL PO SCH (20:32)
[2017-01-12] MEDS: DUONEB (A & A) INH SCH ×6 (03:08→23:23)
[2017-01-12] MEDS: PROTONIX PO SCH (06:19)
[2017-01-12] MEDS: ADVAIR 500/50 DISKUS INH SCH ×2 (07:30→19:29)
[2017-01-12] MEDS: SPIRIVA INH SCH (07:30)
[2017-01-12] MEDS: DALIRESP PO SCH (08:48)
[2017-01-12] MEDS: CARDIZEM CD PO SCH (08:48)
[2017-01-12] MEDS: PREDNISONE PO SCH ×2 (08:48→20:09)
[2017-01-12] MEDS: TOPROL XL PO SCH (08:48)
[2017-01-12] MEDS: KLOR-CON PO SCH (08:49)
[2017-01-12] MEDS: ZOLOFT PO SCH (08:49)
[2017-01-12] MEDS: MYSOLINE PO SCH ×2 (08:50→20:09)
[2017-01-12] MEDS: LEVAQUIN PO SCH (11:58)
--- NOTE | 2017-01-12 14:13 | PROGRESS NOTE ---
DATE: 01/12/2017 SUBJECTIVE: This patient feels better. No complaints today. No acute events overnight. OBJECTIVE: Vital Signs: Temperature 99 degrees, pulse 114, respiratory rate 16, blood pressure 115/71, oxygen saturation 100% on 2 L of nasal cannula. HEENT: Normocephalic. No trauma. PERRLA. Neck: Supple. No JVD. No masses. Central trachea. Cardiovascular: Regular rate. She has decreased breath sounds globally, no wheezing. Prolonged expiratory phase. Abdomen: Soft, nontender, nondistended. Neurological: The patient is alert and oriented x3. No focal deficits. LABORATORY: Glucose 209. ASSESSMENT AND PLAN: 1. Chronic obstructive pulmonary disease exacerbation, this is getting much better. No wheezing today. She is breathing better. This patient uses oxygen at home about 2-3 L. 2. Chronic tobacco abuse. Aware. This patient has been highly advised against tobacco abuse. We will continue with daily cessation education. 3. Chronic hypercapnic respiratory failure likely secondary to #1. The plan is to discharge this patient either home or rehab center with oxygen, she needs to use a BiPAP p.r.n. mostly during the night. She will continue with antibiotics and steroids, continue with physical therapy as well. linen room worker on board. cc: Lb Patton MD
[2017-01-12] MEDS: PRAVACHOL PO SCH (20:09)
[2017-01-12] MEDS: KLONOPIN PO PRN (20:09)
[2017-01-13] MEDS: DUONEB (A & A) INH SCH ×4 (03:49→15:57)
[2017-01-13] MEDS: PROTONIX PO SCH (05:59)
[2017-01-13 06:47] LABS: BASO% 0.1 % (0.0-0.8); EOS# 0.01 X1000 (0.0-0.7); EOS% 0.1 % (0.0-10.0); HEMATOCRIT 36.2 % (37.0-47.0); HEMOGLOBIN 11.4 g/dL (12.0-16.0); IMM GRAN# 0.07 X1000 (0.0-0.04); IMM GRAN% 0.5 % (0.0-0.5); LYMPH# 0.93 X1000 (1.2-3.4); LYMPH% 6.3 % (20.5-51.1); MANUAL DIFF NEEDED? YES; MCH 30.1 PG (27-31); MCHC 31.5 g/dL (33-37); MCV 95.5 FL (81-99); MONO# 0.82 X1000 (0.11-0.59); MONO% 5.5 % (1.7-9.3); MPV 9.7 FL (7.4-10.4); NEUT% 87.5 % (42.2-75.2); PLT 367 X1000 (130-400); RBC 3.79 XMIL (4.2-5.4)
[2017-01-13 06:57] LABS: AGAP 7; BUN 12 mg/dL (8-22); CALCIUM 9.6 mg/dL (8.8-10.2); CHLORIDE 93 mmol/L (98-107); COSMO 275; POTASSIUM 4.2 mmol/L (3.5-5.1); SODIUM 135 mmol/L (136-145); TCO2 35 mmol/L (25-35)
[2017-01-13 07:21] VITALS: BP 124/84
[2017-01-13] MEDS: SPIRIVA INH SCH (07:34)
[2017-01-13] MEDS: ADVAIR 500/50 DISKUS INH SCH (07:35)
[2017-01-13 07:45] LABS: LYMPHS 8 % (21-51); MONO 6 % (1-9)
[2017-01-13] MEDS: MYSOLINE PO SCH (08:55)
[2017-01-13] MEDS: DALIRESP PO SCH (08:56)
[2017-01-13] MEDS: CARDIZEM CD PO SCH (08:56)
[2017-01-13] MEDS: ZOLOFT PO SCH (08:56)
[2017-01-13] MEDS: PREDNISONE PO SCH (08:56)
[2017-01-13] MEDS: KLOR-CON PO SCH (08:56)
[2017-01-13] MEDS: TOPROL XL PO SCH (08:56)
[2017-01-13] MEDS: LEVAQUIN PO SCH (12:04)
--- NOTE | 2017-01-13 14:37 | DISCHARGE SUMMARY ---
ADMISSION DATE: 01/05/2017 DISCHARGE DATE: DISCHARGE DIAGNOSES: 1. Right mid lung pneumonia. 2. Chronic obstructive pulmonary disease exacerbation. 3. Hypoxic and hypercapnic respiratory failure. 4. Hypertension. 5. Moderate protein calorie malnutrition. 6. Physical deconditioning. HOSPITAL COURSE: 56-year-old, female with a past medical history of chronic obstructive pulmonary disease with chronic steroid therapy, hypertension, dyslipidemia. Currently on Trilogy at home presented to the emergency department with a chief complaint of shortness of breath that started 24 hours prior to the ER arrival. She noticed more shortness of breath with physical activity and progressed to shortness of breath at rest. Oxygen saturation was 86 on 2 L. Of note, she was hospitalized on December 02 for more than 2 weeks for pneumonia. She was discharged to rehab and she states that she got out of rehab 5-6 days previous to this admission. She denies fever, chills, nausea, vomiting, diarrhea, or chest pain. Chest x-ray revealed increasing opacity in the right mid lung suggesting worsening consolidation with COPD changes. So this patient was admitted to the medical floor and she was placed on respiratory treatment. She was placed on high dose steroids and antibiotics for the pneumonia, pulmonary toilet and oxygen. She is sleeping with a BiPAP machine. This patient was improving on a daily basis but she has generalized weakness and physical deconditioning. Today this patient was breathing fine. She is still using oxygen and she should be on oxygen I believe for the rest of her life. She is still using the BiPAP machine during the night. She was feeling much better. So this is why we decided to discharge this patient to a rehab facility because she needs to get her strength back. Vital Signs: Temperature 98.1 degrees, pulse 101, respiratory rate 18, blood pressure 124/84, oxygen saturation 100% on 2 L of nasal cannula. HEENT: Head normocephalic. No trauma. PERRLA. Neck: Supple. No JVD. No masses. Central trachea. Chest: Decreased breath sounds globally. Prolonged expiatory phase. Mild rhonchi at the level of the right mid lung. No rales. No wheezing. Abdomen: Soft, nontender, nondistended. No hepatosplenomegaly. Extremities: No edema. No clubbing. No cyanosis. Some redness at the level of the plantar area of her feet with some burning sensation. Neurological examination: The patient is alert and oriented x3. No focal neurological deficits. LABORATORY: WBC 14.8, hemoglobin 11.4, hematocrit 36.2, platelets 367,000. Sodium 135, potassium 4.2, chloride 93, bicarbonate 35, BUN 12, creatinine 0.3, glucose 190, calcium 9.6. DISCHARGE MEDICATIONS: 1. Levofloxacin 500 mg p.o. daily for 3 days. 2. Maalox Plus Liquid 30 mL every 4 hours p.r.n. as needed. 3. Prednisone 40 mg p.o. daily for 1 week and then 20 mg p.o. daily for 1 week, then 10 mg p.o. daily, she has been on chronic prednisone 10. 4. Acetaminophen 650 mg p.o. q.6 hours p.r.n. 5. Alprazolam 0.25 mg p.o. every 8 hours as needed. 6. Sertraline 100 mg p.o. daily. 7. Primidone 250 mg p.o. twice a day. 8. Daliresp 500 mcg p.o. daily. 9. Spiriva 1 puff inhaler daily. 10. Pravastatin 40 mg p.o. at bedtime. 11. Advair 500/50 Diskus 1 puff twice a day. 12. ProAir HFA one puff every 4 hours as needed. 13. Albuterol 2.5 mg/ipratropium 0.5 mg 3 mL inhalation every 4 hours p.r.n. 14. Pantoprazole 40 mg p.o. daily. 15. Metoprolol succinate 100 mg p.o. daily. 16. Potassium chloride 10 mg p.o. daily. 17. Diltiazem 240 mg p.o. daily. Time discharging this patient 40 minutes. cc: Lb Patton MD
[2017-01-13] MEDS ORDERED: PREDNISONE PO SCH (21:00)
== END 2017-01-13 16:31 ==
LOC: P.ED 09:25 → SUATTDRO 12:11 → P.MEDSURG 12:11
PROVIDERS: ATTEND Internal Medicine

== ENCOUNTER 2018-08-17 10:59 | Inpatient (IN) ==
[2018-08-17 11:44] LABS: BASO# 0.02 X1000 (0.0-0.2); BASO% 0.3 % (0.0-0.8); EOS# 0.08 X1000 (0.0-0.7); EOS% 1.1 % (0.0-10.0); HEMOGLOBIN 12.1 g/dL (12.0-16.0); LYMPH# 2.11 X1000 (1.2-3.4); LYMPH% 30.3 % (20.5-51.1); MCH 30.5 PG (27-31); MCV 98.2 FL (81-99); MONO# 0.72 X1000 (0.11-0.59); MONO% 10.3 % (1.7-9.3); MPV 9.3 FL (7.4-10.4); NEUT# 4.04 X1000 (1.4-6.5); PLT 345 X1000 (130-400); RBC 3.97 XMIL (4.2-5.4); RDW 12.1 % (11.5-14.5); WBC 6.97 X1000 (4.8-10.8)
--- NOTE | 2018-08-17 11:48 | Diag Imaging Result Doc PS360 ---
EXAM: CHEST-2 VIEWS HISTORY: shortness of breath TECHNIQUE: Chest two views COMPARISON: 05/07/2018 FINDINGS: The lungs are hyperexpanded. The heart is not enlarged. The vessels are small. There are no infiltrates. No pleural effusions. There is scarring in the mid right lung. IMPRESSION: Emphysema Electronically signed by Landen Storm 08/17/2018 11:46 AM
[2018-08-17] MEDS ORDERED: SOLU-MEDROL IV ONE (11:57)
[2018-08-17] MEDS ORDERED: MAGNESIUM SULFATE 1 GM/D5W 1 GM/100 ML IVPB IV ONE (11:57)
[2018-08-17] MEDS ORDERED: NS 1,000 ML IV ONE (11:57)
[2018-08-17] MEDS ORDERED: DUONEB (A & A) INH ONE (11:59)
[2018-08-17] MEDS ORDERED: REGLAN IV ONE (12:00)
[2018-08-17] MEDS ORDERED: IMODIUM PO ONE (12:00)
[2018-08-17] MEDS ORDERED: TORADOL IV ONE (12:01)
[2018-08-17 12:08] LABS: AGAP 9; ALBUMIN 4.1 g/dL (3.5-5.0); ALKALINE PHOSPHATASE 73 U/L (32-104); BUN 8 mg/dL (8-22); CHLORIDE 97 mmol/L (98-107); COSMO 281; CREATININE 0.4 mg/dL (0.5-0.9); ESTIMATED GFR > 60; GLUCOSE 126 mg/dL (70-104); GOT 34 U/L (10-30); GPT 46 U/L (10-36); POTASSIUM 4.5 mmol/L (3.5-5.1); SODIUM 141 mmol/L (136-145); TCO2 35 mmol/L (25-35); TOTAL PROTEIN 6.5 g/dL (6.3-8.3)
--- NOTE | 2018-08-17 12:09 | PROVIDER DOCUMENTATION ---
This chart was entered by Deanna Johnson Scribe, acting as scribe for Anastasia Cunningham MD. HPI-General Adult - General Chief Complaint: Shortness of Breath Stated Complaint: SOB / DIARRHEA Time Seen by Provider: 08/17/18 11:13 Source: patient Allergies/Adverse Reactions: Patient Allergies Allergy/AdvReac Type Severity Reaction Status Date / Time Penicillins Allergy Severe loss of Verified 05/07/18 19:26 consciousness Home Medications: Home Medication List Medication Instructions Recorded Confirmed Last Taken Type Primidone [Mysoline] 250 mg PO BID 04/08/13 07/08/18 04/12/17 History Albuterol Sulfate [Proair Hfa] 2 puff INH Q4-6H PRN PRN 12/07/16 07/08/18 Unknown History PRAVAstatin [Pravachol] 40 mg PO HS 12/07/16 07/08/18 04/11/17 History Potassium Chloride 10 meq PO DAILY 01/05/17 07/08/18 04/12/17 History Cetirizine [Zyrtec] 10 mg PO DAILY PRN 10/15/17 07/08/18 Unknown History Ferrous Sulfate 325 mg PO DAILY 10/15/17 07/08/18 Unknown History Tiotropium [place] Inhaler 1 puff INH RTDAILY 10/15/17 07/08/18 Unknown History [Spiriva] Diltiazem HCl [Cartia Xt] 120 mg PO DAILY 10/22/17 07/08/18 Unknown History Budesonide/Formoterol Inhaler 2 puff INH RTDAILY 07/08/18 07/08/18 Unknown History [Symbicort 160/4.5 Microgm Inhaler] Calcium Carbonate/Vit D3 [Caltrate 1 each PO DAILY 07/08/18 07/08/18 Unknown History 600 + D] Prednisone 10 mg PO DAILY 07/08/18 07/08/18 Unknown History Metformin [Glucophage] 500 mg PO DAILY 08/15/18 08/15/18 Unknown History Sertraline HCl [Zoloft] 100 mg PO DAILY 08/15/18 08/15/18 Unknown History - History of Present Illness -Gen Adult Nature of Presenting Problems: 58 yof presents to er w/co sob, vomiting 3 x per 24 hours nonbloody nonbilious and diarrhea x 3 to 5 today, non bloody, not black or tarry, and headache on left side for about a week similar to her migraines with photophobia and phonophobia. pt took tylenol and alleve for headache with no relief. pt has hx of copd and does breathing treatments every 4 hours. pt has O2 BNC 2L 04/01. pt takes 10mg steroids and spiriva. pt reports no fever or cough or abdominal/ chest or back pain, no rash. Review of Systems - Adult - REVIEW OF SYSTEMS - ADULT Constitutional: reports: no symptoms reported. denies: chills, fever, fatique Eyes: reports: no symptoms reported Ears, Nose, Mouth & Throat: reports: no symptoms reported Cardiovascular: reports: no symptoms reported Respiratory: reports: see HPI, cough, shortness of breath. denies: dyspnea on exertion, excessive sputum production, hemoptysis Gastrointestinal: reports: see HPI, diarrhea, poor appetite (pt has not been able to eat well bc of symptoms), vomiting. denies: abdominal pain, constipation, difficulty swallowing Genitourinary: reports: no symptoms reported Musculoskeletal: reports: no symptoms reported Integumentary: reports: no symptoms reported Neurological: reports: see HPI, headache/migraines (parietal left). denies: dizziness/vertigo, loss of balance, numbness, slurred speech, syncope, tremors Psychiatric: reports: no symptoms reported Endocrine: reports: no symptoms reported Hematologic/Lymphatic: reports: no symptoms reported Allergic/Immunologic: reports: no symptoms reported All Other Systems: Reviewed and Negative Past History - Adult - PAST MEDICAL HISTORY-ADULT Review of Records: reports: Old Records Reviewed, Nursing Assessment Review, Medications Reviewed, Social history reviewed & non-contributory. Major Childhood Illnesses: reports: denies history Cardiovascular: reports: arrhythmia (tachycardia), HTN, hyperlipidemia Respiratory: reports: asthma, bronchitis, COPD, pneumonia Gastrointestinal: reports: GERD Obstetrical/Gynecological: reports: denies history Genitourinary: reports: denies history Musculoskeletal: reports: denies history Neurological: reports: denies history Psychiatric: reports: denies history Endocrine/Immune: reports: denies history Other Conditions: reports: denies history - PRIOR SURGERIES/PROCEDURES Surgical/Procedure History: reports: hysterectomy - IMMUNIZATION STATUS Childhood Immunizations: See Nurse Assessment Flu Vaccine: See Nurse Assessment - FAMILY HISTORY Family History: reviewed, not pertinent - SOCIAL HISTORY Smoking: other (former smoker) Substance Use: none/never Physical Exam-General - PHYSICAL EXAM-ADULT Initial Vital Signs Reviewed: Yes - CONSTITUTIONAL General Appearance: mild distress, obtunded - EYES Eyes: pink conjunctivae - HEAD, EARS, NOSE, MOUTH & THROAT HENMT: moist mucous membranes - NECK Neck: supple - RESPIRATORY Respiratory: no pleuratic chest pain, no accessory muscle use, decreased breath sounds, other (tight, distant breath sounds, mild wheezing all diffusely bilaterally) - CARDIOVASCULAR Cardiovascular: normal peripheral pulses, regular rate, rhythm - GASTROINTESTINAL (ABDOMEN) Abdominal Exam: normal bowel sounds, non tender, soft - LYMPHATIC Lymphatic: no adenopathy - MUSCULOSKELETAL Extremity: normal range of motion, normal gait - SKIN Integumentary: normal color, normal turgor, warm/dry - NEUROLOGIC Neurologic: grossly normal, no motor/sensory deficits - PSYCHIATRIC Psych/Mental Status: normal mood/affect, normal thought content, normal thought process, oriented x 3 Progress - PLAN OF CARE/RESULTS Progress/Plan/Lab Results: Vital Signs - 8 hr 08/17/18 11:03 Temperature 98.1 F Pulse Rate 93 H Respiratory Rate 18 Blood Pressure 118/080 O2 Sat by Pulse Oximetry 100 Laboratory Results - last 24 hr 08/17/18 11:21 WBC 6.97 RBC 3.97 L Hgb 12.1 Hct 39.0 MCV 98.2 MCH 30.5 MCHC 31.0 L RDW Std Deviation 12.1 Plt Count 345 MPV 9.3 Immature Gran % (Auto) 0.0 Neut % (Auto) 58.0 Lymph % (Auto) 30.3 [place] % (Auto) 10.3 H Eos % (Auto) 1.1 Baso % (Auto) 0.3 Immature Gran # (Auto) 0.00 Neut # (Auto) 4.04 Lymph # (Auto) 2.11 [place] # (Auto) 0.72 H Eos # (Auto) 0.08 Baso # (Auto) 0.02 Orders Category Date Time Status CHEST-2 VIEWS [RAD] Stat Exams 08/17/18 11:30 Completed CBC WITH ELECTRONIC DIFF [HEME] Stat Lab 08/17/18 11:21 Completed CK TOTAL [CHEM] Stat Lab 08/17/18 11:21 Received COMPREHENSIVE METABOLIC PANEL [CHEM] Stat Lab 08/17/18 11:21 Received PRO B-NATRIURETIC PEPTIDE Stat Lab 08/17/18 11:21 Received TROPONIN T Stat Lab 08/17/18 11:21 Received labs unremarkable, chest xray copd findings, no pneumonia 1457 pt is less tight and breathing better, but not back to baseline, pt declines another breathing treatment, migraine gone, no nausea or diarrhea here , agreed to admit due to significant COPD h/o and multiple issues, call out to [place] 1458 d/w [place] 1550 HPI PMH condition on arrival treatment results need for admit , agreed to admit Result Diagrams: 08/17/18 11:21 08/17/18 11:21 Departure - Departure Date of Disposition Decision: 08/17/18 Time of Disposition Decision: 15:00 DIAGNOSIS: COPD (chronic obstructive pulmonary disease), Migraine, Vomiting and diarrhea Disposition: ADMITTED INPATIENT 09 Certified Medical Emergency: Emergent Condition: Good Additional Freetext Instructions: 13:51 admit [place] Referrals and Follow-Ups: Rodrick Reinoso III, MD [Primary Care Provider] - - Critical Care Note This patient required my direct & personal management of CC.: No Attestation - Physician/ LILLIE Attestation Patient care was provided by Advanced Practice Provider:: No The physician spent face to face time with patient:: Yes Advanced Practice Provider documentation review:: Supervising physician onsite and consulted in the evaluation and care of this patient. The physician did have a face to face encounter with the patient. This chart was documented by the indicated scribe, (Deanna Johnson, Elisa) and accurately reflects the services I performed and decisions made by me, Anastasia Cunningham MD, as attested by the provider's signature.
[2018-08-17] MEDS ORDERED: DUONEB (A & A) INH PRN (16:37)
[2018-08-17] MEDS ORDERED: ZOFRAN IV PRN (16:37)
--- NOTE | 2018-08-17 18:44 | HISTORY AND PHYSICAL ---
CHIEF COMPLAINT: Shortness of breath, vomiting and diarrhea. HISTORY OF PRESENT ILLNESS: This is a 58-year-old female with a history of COPD, chronic hypercapnic respiratory failure, hypertension. She presents to the emergency room complaining of a headache that has been present for about the last 4 or 5 days, as well as 3 episodes of vomiting over the last 24 hours. She did have 1 episode of diarrhea. She denied any black or bloody vomitus in her stools. She states that she has had an increase in her shortness of breath over the last 24 hours despite her home medications. She does have a history of migraines. She states this headache is consistent with her normal migraine. PAST MEDICAL HISTORY: COPD, chronic hypercapnic respiratory failure, chronic steroid use, dyslipidemia, hypertension, gastroesophageal reflux disease. PAST SURGICAL HISTORY: Hysterectomy. SOCIAL HISTORY: She denies alcohol, tobacco or illicit drug use. ALLERGIES: Penicillin. HOME MEDICATIONS: A list will be obtained by the nursing staff and will be reviewed and restarted as is appropriate. PHYSICAL EXAMINATION: GENERAL: This is a 58-year-old female who is sitting up in the stretcher in the emergency room in no distress. VITAL SIGNS: Blood pressure is 146/89, with a heart rate of 100, respirations 19, temperature is 98 oral, with O2 sats 96-99% on 2 L nasal cannula. EYES: Pupils equal, round, react to light. EOMs are intact. Sclerae anicteric. HEENT: Head is normocephalic, atraumatic. Mucous membranes are moist. NECK: Supple, with trachea midline. CARDIOVASCULAR: Regular rate and rhythm. S1 and S2 are appreciated. She has no lower extremity edema. Calves nontender to palpation. Peripheral pulses are palpable x 4 extremities. PULMONARY: Breath sounds are diminished throughout. She has no increased work of breathing. Chest rises and falls symmetrically with respiration. Chest wall is nontender to palpation. GASTROINTESTINAL: Abdomen is soft, nontender, nondistended. With bowel sounds in all 4 quadrants. GENITOURINARY: She has no CVAT or suprapubic tenderness. SKIN: Warm and dry. NEUROLOGIC: She is alert and oriented x 3. LABS: WBC is 6.9 with hemoglobin 12.1, hematocrit 39 and platelets of 345,000. Sodium is 141, potassium 4.5, BUN 8, creatinine 0.4 with a glucose of 126. Chest x-ray reveals emphysema. Lungs are hyperexpanded. Heart is not enlarged. Vessels are small. There are no infiltrates. ASSESSMENT AND PLAN: 1. Chronic obstructive pulmonary disease, acute exacerbation. 2. Vomiting and diarrhea. 3. Migraine headache, which is resolved. 4. Hypertension. 5. Gastroesophageal reflux disease. PLAN: The patient will be admitted to the Medical-Surgical floor. She will be placed on telemetry. We will continue her O2 at 2 L. DuoNebs q.4 hours and q.2 p.r.n. with steroids to taper, will start incentive spirometer. Will start clear liquids as tolerated and advance, giving Zofran for nausea. Repeat a BMP and a CBC in the morning. Further treatments pending hospital course. Identify home medications and continue as appropriate. Dictated by JOCELINE Hogue for Ra Ma MD This chart was documented by, JOCELINE Hogue and accurately reflects the services performed, treatment plan and medical decisions as attested by the providers signature Ra Ma MD. cc: JOCELINE Hogue MD [facility]. ELIZABETH'S HOSPITALRogelio
[2018-08-17] MEDS: DUONEB (A & A) INH SCH ×2 (20:17→23:31)
[2018-08-17] MEDS: SOLU-MEDROL IV SCH (20:57)
[2018-08-17] MEDS: NORCO-7.5 PO PRN (22:02)
--- NOTE | 2018-08-17 23:31 | HISTORY AND PHYSICAL ---
CHIEF COMPLAINT: Shortness of breath. HISTORY OF PRESENT ILLNESS: The patient is a 58-year-old female who unfortunately has been to the ER and admitted to the hospital several times in the past due to her COPD. She states she has been sick for about 2 weeks and finally decided to come to the hospital. She has had nausea and vomiting for the past 24 hours that has been nonbloody and nonbilious. She has had a headache, increased work of breathing, increased cough and congestion, increased shortness of breath. REVIEW OF SYSTEMS: As noted above. The patient has had a headache with phonophobia and photophobia. Denies any focalized weakness, numbness, or tingling. Has had diarrhea but no blood in her stool. Has had loss of appetite with nausea and occasional vomiting. No blood in her emesis. Denies any current fevers, chills, blurry vision, change in vision. Denies any focalized weakness in her extremities. Denies any dysuria, frequency, or urgency. Denies any chronic constipation or chronic diarrhea-type symptoms. PAST MEDICAL HISTORY: Significant for COPD, recurrent pneumonia, hypertension, supraventricular tachycardia, hyperlipidemia, reflux, chronic tobacco abuse. FAMILY HISTORY: Positive for COPD. SOCIAL HISTORY: The patient is a former smoker, has not smoked in several years. Denies any alcohol use or illicit drug use. PHYSICAL EXAMINATION: VITAL SIGNS: Temperature 98, pulse 93, respiratory 18, BP 118/80, saturating 100% on 2 L. GENERAL: The patient is awake, alert. She is pleasant to talk with but is somewhat ill appearing. HEENT: Normocephalic. NECK: Supple. CARDIOVASCULAR: Regular rate. CHEST: Relatively clear. No current crackles. Occasional faint wheezing. Mildly labored. ABDOMEN: Soft, nondistended. EXTREMITIES: Moves all extremities. NEUROLOGIC: No focal changes. ASSESSMENT: 1. Chronic obstructive pulmonary disease with exacerbation. 2. Hyperglycemia. 3. Nausea and vomiting. 4. Migraine. 5. Other. PLAN: We will continue the patient in the hospital, continue medications, breathing treatments, oxygen, and will follow. cc: Ra Ma MD
[2018-08-18] MEDS: DUONEB (A & A) INH SCH ×6 (04:20→22:48)
[2018-08-18 06:37] LABS: BASO# 0.01 X1000 (0.0-0.2); BASO% 0.1 % (0.0-0.8); EOS# 0.01 X1000 (0.0-0.7); EOS% 0.1 % (0.0-10.0); HEMATOCRIT 34.9 % (37.0-47.0); HEMOGLOBIN 10.5 g/dL (12.0-16.0); IMM GRAN# 0.01 X1000 (0.0-0.04); IMM GRAN% 0.1 % (0.0-0.5); LYMPH# 1.17 X1000 (1.2-3.4); LYMPH% 16.8 % (20.5-51.1); MCH 29.9 PG (27-31); MCHC 30.1 g/dL (33-37); MCV 99.4 FL (81-99); MONO# 0.46 X1000 (0.11-0.59); MONO% 6.6 % (1.7-9.3); MPV 9.5 FL (7.4-10.4); NEUT# 5.31 X1000 (1.4-6.5); NEUT% 76.3 % (42.2-75.2); PLT 313 X1000 (130-400); RBC 3.51 XMIL (4.2-5.4); RDW 11.8 % (11.5-14.5); WBC 6.97 X1000 (4.8-10.8)
[2018-08-18 06:39] LABS: AGAP 8; BUN 8 mg/dL (8-22); CALCIUM 8.7 mg/dL (8.8-10.2); CHLORIDE 98 mmol/L (98-107); COSMO 281; CREATININE 0.3 mg/dL (0.5-0.9); ESTIMATED GFR > 60; GLUCOSE 120 mg/dL (70-104); POTASSIUM 4.6 mmol/L (3.5-5.1); SODIUM 141 mmol/L (136-145); TCO2 35 mmol/L (25-35)
[2018-08-18] MEDS ORDERED: VENTOLIN HFA INH PRN (08:39)
[2018-08-18] MEDS ORDERED: ZYRTEC PO PRN (08:39)
[2018-08-18] MEDS: NORCO-7.5 PO PRN ×2 (09:57→16:19)
[2018-08-18] MEDS: KLOR-CON PO SCH (11:23)
[2018-08-18] MEDS: MYSOLINE PO SCH (11:24)
[2018-08-18] MEDS: CALTRATE 600 + D PO SCH (11:24)
[2018-08-18] MEDS: ZOLOFT PO SCH (11:24)
[2018-08-18] MEDS: PREDNISONE PO SCH (11:24)
[2018-08-18] MEDS: CARDIZEM CD PO SCH (11:24)
[2018-08-18] MEDS: FERROUS SULFATE PO SCH (11:24)
[2018-08-18] MEDS: SOLU-MEDROL IV SCH ×3 (11:32→20:21)
[2018-08-18] MEDS: TOPROL XL PO SCH (12:06)
[2018-08-18] MEDS: PRAVACHOL PO SCH (20:21)
--- NOTE | 2018-08-19 00:01 | PROGRESS NOTE ---
DATE: 08/18/2018 SUBJECTIVE: Patient notes that she is feeling a little bit better. Still having palpations, still having shortness of breath. Denies any current fevers or chills. PHYSICAL EXAM: Vital signs: Temperature 98 degrees, pulse 102, respiratory rate 13, BP 113/60. General: Patient currently is in mild respiratory distress. HEENT: Normocephalic. Neck: Supple. Cardiovascular: Regular rate. No murmurs. Chest: Clear, nonlabored. Abdomen: Soft. Extremities: Moves all extremities. Neurologic: No focal changes. Skin: Warm, dry. No rashes. ASSESSMENT: 1. Nausea, vomiting. 2. Chronic obstructive pulmonary disease with exacerbation. 3. Hyperglycemia. 4. Migraines. PLAN: Continue Solu-Medrol. Advance her diet. Continue to follow. Hopefully home over the next day or two. cc: aR Ma MD
[2018-08-19] MEDS: DUONEB (A & A) INH SCH ×6 (03:37→22:36)
[2018-08-19] MEDS: SYMBICORT 160/4.5 MICROGM INHALER INH SCH (07:46)
[2018-08-19] MEDS: SPIRIVA INH SCH (07:46)
[2018-08-19] MEDS: PREDNISONE PO SCH (10:16)
[2018-08-19] MEDS: GLUCOPHAGE PO SCH (10:16)
[2018-08-19] MEDS: SOLU-MEDROL IV SCH ×2 (10:16→16:12)
[2018-08-19] MEDS: ZOLOFT PO SCH (10:16)
[2018-08-19] MEDS: TOPROL XL PO SCH (10:16)
[2018-08-19] MEDS: CALTRATE 600 + D PO SCH (10:17)
[2018-08-19] MEDS: CARDIZEM CD PO SCH (10:17)
[2018-08-19] MEDS: KLOR-CON PO SCH (10:17)
[2018-08-19] MEDS: MYSOLINE PO SCH (10:17)
[2018-08-19] MEDS: FERROUS SULFATE PO SCH (10:17)
[2018-08-19] MEDS: PRAVACHOL PO SCH (20:47)
--- NOTE | 2018-08-19 23:41 | PROGRESS NOTE ---
DATE: 08/19/2018 SUBJECTIVE: Patient notes that overall her breathing is improving. Her nausea has resolved. She is able to eat and drink currently. Denies any chest pain, palpitations. Denies any urinary difficulties. PHYSICAL EXAM: Vital signs: Temperature 98.1 degrees, pulse 103, respiratory 18, BP 113/66. General: Patient is awake, alert, currently she is in mild respiratory distress but appears very close to her baseline. HEENT: Normocephalic. Neck: Supple. Cardiovascular: Regular rate. No murmurs. Chest: Decreased but equal breath sounds. Faint wheezing. No crackles. Abdomen: Soft, nondistended. Extremities: Moves all extremities. ASSESSMENT: 1. Chronic obstructive pulmonary disease with acute exacerbation. 2. Hyperglycemia. 3. Chronic nausea, vomiting, improved. 4. Migraine. PLAN: We will continue patient in the hospital, decrease Solu-Medrol to 40 IV q.8 hours. Continue antibiotics, oxygen, breathing treatments, and will follow. Hopefully, home over the next 1 or 2 days. cc: Ra Ma MD
[2018-08-20] MEDS: SOLU-MEDROL IV SCH ×2 (00:35→12:01)
[2018-08-20] MEDS: DUONEB (A & A) INH SCH ×3 (02:33→13:05)
[2018-08-20] MEDS: SYMBICORT 160/4.5 MICROGM INHALER INH SCH (07:38)
[2018-08-20] MEDS: SPIRIVA INH SCH (07:38)
[2018-08-20 11:34] VITALS: BP 115/71
[2018-08-20] MEDS: MYSOLINE PO SCH (11:59)
[2018-08-20] MEDS: CARDIZEM CD PO SCH (12:00)
[2018-08-20] MEDS: ZOLOFT PO SCH (12:00)
[2018-08-20] MEDS: CALTRATE 600 + D PO SCH (12:00)
[2018-08-20] MEDS: TOPROL XL PO SCH (12:00)
[2018-08-20] MEDS: KLOR-CON PO SCH (12:01)
[2018-08-20] MEDS: GLUCOPHAGE PO SCH (12:01)
[2018-08-20] MEDS: PREDNISONE PO SCH (12:01)
[2018-08-20] MEDS: FERROUS SULFATE PO SCH (12:02)
--- NOTE | 2018-08-20 19:28 | DISCHARGE SUMMARY ---
ADMISSION DATE: 08/17/2018 DISCHARGE DATE: 08/20/2018 DIAGNOSES: 1. Migraine headache, resolved. 2. Nausea and vomiting, resolved. 3. Hyperglycemia. 4. Chronic obstructive pulmonary disease with acute exacerbation. 5. Gastroesophageal reflux disease. DIAGNOSTIC DATA: Chest x-ray revealed emphysema; lungs are hyperexpanded; heart is not enlarged; vessels are small; there are no infiltrates; no pleural effusion; there is scarring in the mid right lung. HOSPITAL COURSE: Ms. Caldwell presented to the emergency room complaining of headache, nausea and vomiting for the past 24 hours, stating that she just felt bad for the last 2 weeks. Headache with phonophobia and photophobia resolved, with no recurrence. Nausea and vomiting have resolved. She has eaten 100% of her meals with no complaints. She has had no further diarrhea, and thankfully she is ready for discharge. DISCHARGE PHYSICAL EXAMINATION: Vital signs: Blood pressure is 115/71 with heart rate of 83, respirations 18, temperature is 97.9 degrees with O2 saturations 96% to 99% on 2 L nasal cannula. Cardiovascular: Regular rate and rhythm. S1 and S2 appreciated. She has no lower extremity edema, with peripheral pulses palpable x4 extremities. Pulmonary: Breath sounds are diminished but clear. Chest rises and falls symmetrically with respiration. Chest wall is nontender to palpation. Gastrointestinal: Abdomen is soft, nontender, nondistended with bowel sounds in all 4 quadrants. Neurologic: She is alert and oriented. DISCHARGE MEDICATIONS: 1. Albuterol inhaler 2 puffs q.4-6 hours p.r.n. 2. Fosamax 1 tablet every 7 days as directed. 3. Symbicort 160/4.5 two puffs daily. 4. Caltrate 600 Plus D one daily. 5. Zyrtec 10 mg p.o. as needed for allergies. 6. Cartia XT 120 mg p.o. daily. 7. Ferrous sulfate 325 mg p.o. daily. 8. Glucophage 1000 mg p.o. daily. 9. Toprol-XL 150 mg p.o. daily. 10. Potassium chloride 10 mEq p.o. daily. 11. Pravachol 40 mg at bedtime. 12. Primidone 500 mg p.o. daily. 13. Zoloft 100 mg p.o. daily. 14. Spiriva 1 puff daily. 15. Prednisone taper 40 mg for 4 days, 30 mg for 4 days, 20 mg for 4 days, then she wishes to return to her 10 mg p.o. daily, which is her normal home medicine. DISPOSITION: 1. Followup: She is to follow up with her primary care physician, Dr. Rodrick Reinoso, in the next 2-3 weeks. She has been instructed to call Wednesday to schedule an appointment. She has been instructed to call to be seen sooner or return to the ER for any syncope, dizziness, chest pain, palpitations, increasing shortness of breath, temperature greater than 101 degrees or for any questions or concerns that she may have. She is being discharged home in stable condition with family members. The patient does use home O2. She does have O2 with her on discharge. This was a greater than 30-minute discharge. Dictated by JOCELINE Hogue for Ra Ma MD This chart was documented by, JOCELINE Hogue and accurately reflects the services performed, treatment plan and medical decisions as attested by the providers signature Ra Ma MD. cc: JOCELINE Hogue MD Luther Corley, III, MD MTDD
[2018-08-21] MEDS ORDERED: FOSAMAX PO SCH (06:00)
--- NOTE | 2018-08-21 10:57 | DISCHARGE SUMMARY ---
ADMISSION DATE: 08/17/2018 DISCHARGE DATE: 08/20/2018 SUBJECTIVE: Patient seen and examined by myself. Full note dictated and discussed with nurse practitioner. On discharge, the patient is awake, alert. Notes that her breathing, although is not completely back to her baseline, is much improved. She is having faint wheezing. OBJECTIVE: Abdomen: Soft, nondistended. Extremities: Moves all extremities. ASSESSMENT: 1. Chronic obstructive pulmonary disease with exacerbation. Continues to improve. 2. Hypoxic respiratory failure, acute on chronic. 3. Nausea and vomiting, resolved. 4. Hyperglycemia, stable. 5. Others. The patient thankfully continues to improve. On discharge, she is awake, alert. She is able to ambulate. Her breathing is fairly close to her baseline. She will be discharged home. She will continue breathing treatments at home. cc: Ra Ma MD
== END 2018-08-20 12:30 | disposition home or self-care (01) | DRG 191 ==
LOC: P.ED 10:59 → P.MEDSURG 17:14
PROVIDERS: ATTEND Family Medicine
CPT/HCPCS: 71020; 71046; 80048; 80053; 82550; 83605; 83880; 84484; 85025; 94640; 94761; 94799; 96361; 96365; 96375; 99285; A9270; J1885; J2765; J2920; J2930; J3475; J7030; J7506; J7512